=== PATIENT | male | born 1965 | race Caucasian/White ===

== ENCOUNTER 2016-09-19 11:17 | Observation (INO) | payer OTHER ==
[~2016-09-19] VITALS: Ht 172.7 cm; Wt 84.6 kg
[~2016-09-19 11:17] MED LIST: ACARBOSE25 MG PO; ALLEGRA ALLERG180 MG PO; ALLEGRA180 MG PO; ALLERGY-CONGES1 EAC3 PO; AMLODIPINE BESYL5 MG PO; ASMANEX TW200 MICRO1 IH; ASMANEX TW200 MICROG IH; ASPIR 8181 M1 PO; ASPIRIN EC325 MG PO; AZITHROMYCIN250 MG1 PO; AZITHROMYCIN500 M1 PO; Asmanex Twisthaler 1 IH; BETHANECHOL CHL25 MG PO; CELEXA40 MG PO; CITALOPRAM HBR40 MG PO; COMBIGAN O20 DROP/5 LEFT EYE; FLOMAX0.4 MG PO; FLOVENT 11120 INHALA IH; FUROSEMIDE20 MG PO; FUROSEMIDE40 MG PO; Flomax PO; GLIPIZIDE10 MG PO; GLIPIZIDE5 MG PO; GLUCOTROL10 MG PO; HYDROXYZINE HCL25 MG PO; JANUVIA100 MG PO; LASIX20 MG PO; LEVEMIR FL100 UNIT/1 SC; LEVEMIR100 UNIT/2 SC; LIPITOR20 MG PO; LISINOPRIL10 MG PO; LISINOPRIL20 MG PO; LO-DOSE ASPIRIN81 M2 PO; LOPRESSOR100 M1 PO; MELOXICAM15 MG PO; METFORMIN HCL1000 MG PO; METFORMIN HCL500 MG PO; METOPROLOL TART50 MG PO; MOBIC15 MG PO; MONTELUKAST SOD10 MG PO; NITROSTAT0.4 MG SL; NORVASC5 MG PO; PANTOPRAZOLE SO40 MG PO; PRAVACHOL40 MG PO; PRAVASTATIN SOD40 MG PO; PRECOSE25 MG PO; PRECOSE50 MG PO; PROAIR HFA8.5 GM IH; PROTONIX40 MG PO; Protonix PO; SINGULAIR10 MG PO; SPIRIVA RESPIMAT4 GM IH; TAMSULOSIN HCL0.4 MG PO; TRADJENTA5 MG PO; TRAMADOL HCL50 MG PO; ULTRAM50 MG PO; URECHOLINE25 MG PO; Urecholine PO; VENLAFAXINE HCL75 MG PO; VENTOLIN HFA18 GM IH; VERAPAMIL HCL240 M1 PO; VERAPAMIL HCL240 MG PO
[2016-09-19] MEDS ORDERED: LORADAMED10 MG PO (11:47)
[2016-09-19] MEDS ORDERED: SINGULAIR10 MG PO (11:48)
[2016-09-19] MEDS ORDERED: METFORMIN HCL1000 M3 PO (11:51)
[2016-09-19] MEDS ORDERED: GLIPIZIDE5 MG PO (11:51)
[2016-09-19] MEDS ORDERED: RISPERDAL0.5 MG PO (11:52)
[2016-09-19] MEDS ORDERED: BUSPIRONE HCL5 MG PO (11:55)
[2016-09-19] MEDS ORDERED: DULERA 100 MCG/13 GM IH (11:59)
[2016-09-19 12:28] LABS: HEMATOCRIT 33.1 % (38.0-50.0); MCH 27.8 PG (29.0-34.0); MCHC 34.1 G/DL (30.0-36.0); MCV 81.3 FL (86-99); MEAN PLAT.VOLUME 9.7 uM^3 (9.0-12.4); PLATELET COUNT 241 K/uL (156-360); RBC DIS.WIDTH-CV 11.8 % (11.8-14.6); RBC DIS.WIDTH-SD 34.3 % (39-53); RED BLOOD COUNT 4.07 M/uL (4.00-5.50); WHITE BLOOD COUNT 10.4 K/uL (4.1-10.2)
[2016-09-19 12:30] LABS: EOSINOPHIL (%) 11.6 % (0-5); EOSINOPHIL COUNT 1.2 K/uL (0-0.3); IMMATURE GRANULOCYTE (%) 0.5 % (0.0-0.7); IMMATURE GRANULOCYTE COUNT 0.5 K/uL; LYMPHOCYTE COUNT 2.3 K/uL (1.0-2.8); MONOCYTE (%) 6.6 % (3-12); MONOCYTE COUNT 0.7 K/uL (0-0.8); NEUTROPHIL (%) 59.1 % (45-76); NEUTROPHIL COUNT 6.2 K/uL (1.8-6.4)
[2016-09-19 12:36] LABS: CHLORIDE 94 mEq/L (99-109); POTASSIUM 4.6 mEq/L (3.7-5.4); SODIUM 136 mEq/L (136-147)
[2016-09-19 12:38] LABS: GLUCOSE 173 mg/dL (70-99)
[2016-09-19 12:39] LABS: ANION GAP 12 MEQ/L (2-14)
[2016-09-19 12:40] LABS: TOTAL BILIRUBIN 0.4 mg/dL (0.0-1.0)
[2016-09-19 12:42] LABS: ALKALINE PHOSPHATASE 120 IU/L (3-129); GFR ESTIMATE (CALCULATED) > 59 mL/min/
[2016-09-19 12:43] LABS: UREA NITROGEN (BUN) 32 mg/dL (9-23)
[2016-09-19 12:46] LABS: TROP-I INTERPRETATION NEGATIVE; TROPONIN-I < 0.01 ng/mL (0.0-0.30)
[2016-09-19] MEDS ORDERED: OMEPRAZOLE20 MG PO (14:48)
[2016-09-19] MEDS ORDERED: ATROVENT 00.5 MG/2.5 IH (14:55)
[2016-09-19] MEDS ORDERED: LISINOPRIL5 MG PO (14:59)
[2016-09-19] MEDS ORDERED: METFORMIN HCL850 MG PO (15:00)
[2016-09-19] MEDS ORDERED: DAILY VITAMIN1 EAC4 PO (15:01)
[2016-09-19] MEDS ORDERED: ACETAMINOPHEN325 M1 PO (15:05)
[2016-09-19] MEDS ORDERED: MILK OF MAGN PO (15:20)
[2016-09-19] MEDS ORDERED: DULCOLAX10 MG PR (15:21)
[2016-09-19] MEDS ORDERED: ENEMA133 M2 PR (15:22)
[2016-09-19 15:27] VITALS: BP 135/70
[2016-09-19 16:20] VITALS: BP 168/71
[2016-09-19 18:33] LABS: METH RESISTANT S AUREUS PCR POSITIVE (NEGATIVE)
[2016-09-19 18:34] LABS: PROBE CHECK PASS
[2016-09-19 19:57] LABS: TROP-I INTERPRETATION NEGATIVE; TROPONIN-I 0.02 ng/mL (0.0-0.30)
[2016-09-19 20:00] VITALS: BP 116/62
[2016-09-20] VITALS: BP 122/76
[2016-09-20 04:43] VITALS: BP 117/58
[2016-09-20 06:55] LABS: TROP-I INTERPRETATION NEGATIVE; TROPONIN-I 0.02 ng/mL (0.0-0.30)
[2016-09-20 07:52] VITALS: BP 120/69
[2016-09-20 08:09] LABS: POINT-OF-CARE METER ID UU14162513
== END 2016-09-20 10:06 ==
LOC: EME → EDBD 11:17 → EDOF 13:55 → 5WEST 13:55 → EDOF 13:55 → 5WEST 15:18
PROVIDERS: Emergency Medicine; Family Medicine
DX: R07.89 Other chest pain (principal); R94.31 Abnormal electrocardiogram [ECG] [EKG]; R06.02 Shortness of breath; I25.10 Atherosclerotic heart disease of native coronary artery without angina pectoris; I25.5 Ischemic cardiomyopathy; I27.2 Other secondary pulmonary hypertension; I34.0 Nonrheumatic mitral (valve) insufficiency; Z99.81 Dependence on supplemental oxygen; Z95.1 Presence of aortocoronary bypass graft; I10 Essential (primary) hypertension; J44.9 Chronic obstructive pulmonary disease, unspecified; E11.319 Type 2 diabetes mellitus with unspecified diabetic retinopathy without macular edema; E78.5 Hyperlipidemia, unspecified
CPT/HCPCS: 71010; 80053; 82948; 83880; 84484; 85025; 87641; 93005; 94640; 94640 76; 94799; 99202; 99281; 99285; G0378; J1650; J2405

== ENCOUNTER 2016-09-23 21:03 | Inpatient (IN) | payer OTHER ==
[~2016-09-23] VITALS: Ht 172.7 cm; Wt 85.5 kg
[~2016-09-23 21:03] MED LIST changes: +ACETAMINOPHEN325 M1 PO; +ATROVENT 00.5 MG/2.5 IH; +BUSPIRONE HCL5 MG PO; +DAILY VITAMIN1 EAC4 PO; +DULCOLAX10 MG PR; +DULERA 100 MCG/13 GM IH; +ENEMA133 M2 PR; +LISINOPRIL5 MG PO; +LORADAMED10 MG PO; +METFORMIN HCL1000 M3 PO; +METFORMIN HCL850 MG PO; +MILK OF MAGN PO; +OMEPRAZOLE20 MG PO; +RISPERDAL0.5 MG PO
[2016-09-23 21:28] LABS: EOSINOPHIL (%) 6.3 % (0-5); EOSINOPHIL COUNT 0.6 K/uL (0-0.3); HEMATOCRIT 31.2 % (38.0-50.0); IMMATURE GRANULOCYTE (%) 1.1 % (0.0-0.7); IMMATURE GRANULOCYTE COUNT 0.1 K/uL; INSTRUMENT ABS NEUTROPHIL CT 5.9 K/uL; LYMPHOCYTE COUNT 2.2 K/uL (1.0-2.8); MCH 27.8 PG (29.0-34.0); MCHC 34.3 G/DL (30.0-36.0); MEAN PLAT.VOLUME 9.1 uM^3 (9.0-12.4); MONOCYTE (%) 6.5 % (3-12); MONOCYTE COUNT 0.6 K/uL (0-0.8); NEUTROPHIL (%) 62.2 % (45-76); NEUTROPHIL COUNT 5.9 K/uL (1.8-6.4); PLATELET COUNT 191 K/uL (156-360); RBC DIS.WIDTH-CV 11.7 % (11.8-14.6); RBC DIS.WIDTH-SD 33.8 % (39-53); RED BLOOD COUNT 3.85 M/uL (4.00-5.50); WHITE BLOOD COUNT 9.4 K/uL (4.1-10.2)
[2016-09-23 21:39] LABS: CHLORIDE 95 mEq/L (99-109); POTASSIUM 4.4 mEq/L (3.7-5.4); SODIUM 133 mEq/L (136-147)
[2016-09-23 21:41] LABS: GLUCOSE 257 mg/dL (70-99)
[2016-09-23 21:42] LABS: ANION GAP 11 MEQ/L (2-14)
[2016-09-23 21:45] LABS: GFR ESTIMATE (CALCULATED) > 59 mL/min/
[2016-09-23 21:46] LABS: UREA NITROGEN (BUN) 27 mg/dL (9-23)
[2016-09-23 21:50] LABS: TROP-I INTERPRETATION NEGATIVE; TROPONIN-I < 0.01 ng/mL (0.0-0.30)
[2016-09-23 22:56] LABS: ADD MIUA? YES; BILIRUBIN NEGATIVE; BLOOD MODERATE; COLOR STRAW ((YELLOW)); GLUCOSE (STRIP) >=500; KETONES NEGATIVE; LEUKOCYTES LARGE; NITRITE NEGATIVE; PROTEIN (STRIP) NEGATIVE; SPECIFIC GRAVITY 1.002 (1.000-1.030); UROBILINOGEN 0.2 MG/DL (0.2-1.0)
[2016-09-23 22:58] LABS: BACTERIA RARE /HPF; EPITHELIAL CELLS NONE SEEN /HPF; MUCUS NONE SEEN /LPF; RED BLOOD CELLS 0-5 /HPF (0-5); UCUL ADDED? YES; WHITE BLOOD CELLS TNTC /HPF (0-5)
[2016-09-24 03:10] VITALS: BP 150/85
[2016-09-24 04:15] LABS: METH RESISTANT S AUREUS PCR POSITIVE (NEGATIVE)
[2016-09-24 04:16] LABS: PROBE CHECK PASS
[2016-09-24 04:34] VITALS: BP 150/85
[2016-09-24] MEDS ORDERED: TAMSULOSIN HCL0.4 MG PO (05:15)
[2016-09-24] MEDS ORDERED: LOPRESSOR100 M1 PO (05:17)
[2016-09-24] MEDS ORDERED: ALLEGRA ALLERG180 MG PO (05:18)
[2016-09-24] MEDS ORDERED: SINGULAIR10 MG PO (05:18)
[2016-09-24] MEDS ORDERED: ASPIRIN81 M2 PO (05:20)
[2016-09-24] MEDS ORDERED: EFFEXOR75 MG PO (05:21)
[2016-09-24] MEDS ORDERED: COMBIGAN O20 DROP/5 LEFT EYE (05:23)
[2016-09-24] MEDS ORDERED: ATORVASTATIN CA20 MG PO (05:23)
[2016-09-24] MEDS ORDERED: NITROGLYCERIN0.4 MG SL (05:24)
[2016-09-24] MEDS ORDERED: LASIX40 MG PO (05:25)
[2016-09-24] MEDS ORDERED: SPIRIVA RESPIMAT4 GM IH (05:26)
[2016-09-24] MEDS ORDERED: ULTRAM50 MG PO (05:27)
[2016-09-24] MEDS ORDERED: MELOXICAM15 MG PO (05:28)
[2016-09-24] MEDS ORDERED: LORADAMED10 MG PO (05:29)
[2016-09-24] MEDS ORDERED: GLIPIZIDE5 MG PO (05:30)
[2016-09-24] MEDS ORDERED: BUSPAR5 MG PO (05:32)
[2016-09-24] MEDS ORDERED: RISPERDAL0.5 MG PO (05:32)
[2016-09-24] MEDS ORDERED: DULERA 100 MCG/13 GM IH (05:33)
[2016-09-24] MEDS ORDERED: PRILOSEC20 MG PO (05:35)
[2016-09-24] MEDS ORDERED: ATROVENT 00.5 MG/2.5 IH (05:36)
[2016-09-24] MEDS ORDERED: OMEPRAZOLE40 M1 PO (05:36)
[2016-09-24] MEDS ORDERED: METFORMIN HCL850 MG PO (05:37)
[2016-09-24] MEDS ORDERED: ZESTRIL5 MG PO (05:37)
[2016-09-24] MEDS ORDERED: ONCE DAILY1 EACH PO (05:38)
[2016-09-24] MEDS ORDERED: TYLENOL REGULA325 MG PO (05:40)
[2016-09-24 07:58] LABS: POINT-OF-CARE METER ID UU14174216
[2016-09-24 08:42] VITALS: BP 158/82
[2016-09-24 11:41] LABS: POINT-OF-CARE METER ID UU14174216
[2016-09-24 12:08] VITALS: BP 148/64
[2016-09-24 16:42] LABS: POINT-OF-CARE METER ID UU14174216
[2016-09-24 17:18] VITALS: BP 148/70
[2016-09-24 20:45] VITALS: BP 112/80
[2016-09-24 21:33] LABS: POINT-OF-CARE METER ID UU14174216
[2016-09-25 00:42] VITALS: BP 110/58
[2016-09-25 04:21] VITALS: BP 122/64
[2016-09-25 07:55] LABS: POINT-OF-CARE USER ID NUTSLF44
[2016-09-25 09:00] VITALS: BP 132/67
[2016-09-25 12:05] LABS: POINT-OF-CARE USER ID NUTSLF44
[2016-09-25 12:36] VITALS: BP 126/68
[2016-09-25 16:24] VITALS: BP 136/69
[2016-09-25 16:34] LABS: POINT-OF-CARE USER ID NUTSLF44
[2016-09-25 20:10] VITALS: BP 125/66
[2016-09-25 22:37] LABS: POINT-OF-CARE METER ID UU13113698
[2016-09-26 00:19] VITALS: BP 121/78
[2016-09-26 03:59] VITALS: BP 131/78
[2016-09-26 07:08] LABS: HEMATOCRIT 30.2 % (38.0-50.0); MCH 28.1 PG (29.0-34.0); MCHC 33.8 G/DL (30.0-36.0); MCV 83.2 FL (86-99); MEAN PLAT.VOLUME 10.1 uM^3 (9.0-12.4); PLATELET COUNT 214 K/uL (156-360); RBC DIS.WIDTH-SD 36.2 % (39-53); RED BLOOD COUNT 3.63 M/uL (4.00-5.50); WHITE BLOOD COUNT 7.3 K/uL (4.1-10.2)
[2016-09-26 07:20] LABS: POINT-OF-CARE METER ID UU14174216
[2016-09-26 07:27] LABS: ALKALINE PHOSPHATASE 93 IU/L (3-129); ANION GAP 8 MEQ/L (2-14); CHLORIDE 102 MEQ/L (99-109); GFR ESTIMATE (CALCULATED) > 59 mL/min/; GLUCOSE 141 mg/dL (70-99); POTASSIUM 4.3 MEQ/L (3.7-5.4); SAMPLE HEMOLYSIS CHECK 0; SAMPLE ICTERIC CHECK 0; SAMPLE LIPEMIA CHECK 0; SODIUM 138 MEQ/L (136-147); TOTAL BILIRUBIN 0.3 MG/DL (0.0-1.0); UREA NITROGEN (BUN) 15 mg/dL (9-23)
[2016-09-26 08:10] VITALS: BP 137/66
[2016-09-26 11:22] LABS: POINT-OF-CARE METER ID UU14174216
[2016-09-26 11:46] VITALS: BP 117/56
[2016-09-26 15:53] VITALS: BP 152/72
[2016-09-26 16:25] LABS: POINT-OF-CARE METER ID UU13113781
[2016-09-26 20:58] LABS: POINT-OF-CARE METER ID UU14174216
[2016-09-26 23:29] VITALS: BP 126/74
[2016-09-27 04:10] VITALS: BP 125/76
[2016-09-27 07:01] LABS: BASOPHIL COUNT 0.1 K/uL (0-0.1); EOSINOPHIL (%) 9.2 % (0-5); EOSINOPHIL COUNT 0.7 K/uL (0-0.3); HEMATOCRIT 31.6 % (38.0-50.0); IMMATURE GRANULOCYTE (%) 0.9 % (0.0-0.7); IMMATURE GRANULOCYTE COUNT 0.1 K/uL; INSTRUMENT ABS NEUTROPHIL CT 4.7 K/uL; LYMPHOCYTE COUNT 1.6 K/uL (1.0-2.8); MCH 27.6 PG (29.0-34.0); MCHC 33.2 G/DL (30.0-36.0); MCV 82.9 FL (86-99); MEAN PLAT.VOLUME 10.1 uM^3 (9.0-12.4); MONOCYTE (%) 6.4 % (3-12); MONOCYTE COUNT 0.5 K/uL (0-0.8); NEUTROPHIL (%) 61.8 % (45-76); NEUTROPHIL COUNT 4.7 K/uL (1.8-6.4); PLATELET COUNT 228 K/uL (156-360); RED BLOOD COUNT 3.81 M/uL (4.00-5.50); WHITE BLOOD COUNT 7.7 K/uL (4.1-10.2)
[2016-09-27 07:13] LABS: ANION GAP 8 MEQ/L (2-14); CHLORIDE 104 MEQ/L (99-109); GFR ESTIMATE (CALCULATED) > 59 mL/min/; GLUCOSE 157 mg/dL (70-99); POTASSIUM 4.7 MEQ/L (3.7-5.4); SAMPLE HEMOLYSIS CHECK 0; SAMPLE ICTERIC CHECK 0; SAMPLE LIPEMIA CHECK 0; SODIUM 140 MEQ/L (136-147); UREA NITROGEN (BUN) 18 mg/dL (9-23)
[2016-09-27 07:38] LABS: POINT-OF-CARE METER ID UU13113698
[2016-09-27 07:45] VITALS: BP 146/75
[2016-09-27 11:07] VITALS: BP 122/64
[2016-09-27 11:20] LABS: POINT-OF-CARE METER ID UU13113698
[2016-09-27 15:21] VITALS: BP 124/65
[2016-09-27 16:23] LABS: POINT-OF-CARE METER ID UU13113781
[2016-09-27 20:08] VITALS: BP 126/70
[2016-09-27 21:05] LABS: POINT-OF-CARE METER ID UU13113781
[2016-09-28 07:13] LABS: ANION GAP 8 MEQ/L (2-14); CHLORIDE 103 MEQ/L (99-109); GFR ESTIMATE (CALCULATED) > 59 mL/min/; GLUCOSE 148 mg/dL (70-99); POTASSIUM 4.5 MEQ/L (3.7-5.4); SAMPLE HEMOLYSIS CHECK 0; SAMPLE ICTERIC CHECK 0; SAMPLE LIPEMIA CHECK 0; SODIUM 139 MEQ/L (136-147); UREA NITROGEN (BUN) 18 mg/dL (9-23)
[2016-09-28 07:16] LABS: BASOPHIL COUNT 0.1 K/uL (0-0.1); EOSINOPHIL (%) 7.1 % (0-5); EOSINOPHIL COUNT 0.6 K/uL (0-0.3); HEMATOCRIT 32.6 % (38.0-50.0); IMMATURE GRANULOCYTE (%) 1.2 % (0.0-0.7); IMMATURE GRANULOCYTE COUNT 0.1 K/uL; INSTRUMENT ABS NEUTROPHIL CT 5.5 K/uL; LYMPHOCYTE COUNT 1.8 K/uL (1.0-2.8); MCH 26.9 PG (29.0-34.0); MCHC 32.8 G/DL (30.0-36.0); MCV 81.9 FL (86-99); MEAN PLAT.VOLUME 9.7 uM^3 (9.0-12.4); MONOCYTE (%) 5.8 % (3-12); MONOCYTE COUNT 0.5 K/uL (0-0.8); NEUTROPHIL (%) 64.7 % (45-76); NEUTROPHIL COUNT 5.5 K/uL (1.8-6.4); PLATELET COUNT 268 K/uL (156-360); RBC DIS.WIDTH-CV 11.9 % (11.8-14.6); RBC DIS.WIDTH-SD 35.4 % (39-53); RED BLOOD COUNT 3.98 M/uL (4.00-5.50); WHITE BLOOD COUNT 8.6 K/uL (4.1-10.2)
[2016-09-28 08:06] LABS: POINT-OF-CARE METER ID UU14174216; POINT-OF-CARE USER ID ENVKC36
[2016-09-28 08:45] VITALS: BP 128/68
[2016-09-28 11:06] VITALS: BP 122/64
[2016-09-28 12:05] LABS: POINT-OF-CARE METER ID UU14174216; POINT-OF-CARE USER ID ENVKC36
[2016-09-28 13:13] VITALS: BP 130/67
[2016-09-28 16:51] LABS: POINT-OF-CARE METER ID UU13113698
[2016-09-28 19:29] VITALS: BP 120/62
[2016-09-29] VITALS (7 sets, daily range): BP systolic 107–156; BP diastolic 58–81
[2016-09-29 06:55] LABS: BASOPHIL COUNT 0.1 K/uL (0-0.1); EOSINOPHIL COUNT 0.5 K/uL (0-0.3); HEMATOCRIT 32.1 % (38.0-50.0); IMMATURE GRANULOCYTE (%) 1.6 % (0.0-0.7); IMMATURE GRANULOCYTE COUNT 0.1 K/uL; INSTRUMENT ABS NEUTROPHIL CT 4.5 K/uL; MCH 27.6 PG (29.0-34.0); MCHC 33.3 G/DL (30.0-36.0); MCV 82.7 FL (86-99); MEAN PLAT.VOLUME 9.4 uM^3 (9.0-12.4); MONOCYTE (%) 6.4 % (3-12); MONOCYTE COUNT 0.5 K/uL (0-0.8); NEUTROPHIL (%) 58.8 % (45-76); NEUTROPHIL COUNT 4.5 K/uL (1.8-6.4); PLATELET COUNT 245 K/uL (156-360); RBC DIS.WIDTH-CV 12.1 % (11.8-14.6); RED BLOOD COUNT 3.88 M/uL (4.00-5.50); WHITE BLOOD COUNT 7.7 K/uL (4.1-10.2)
[2016-09-29 08:10] LABS: POINT-OF-CARE METER ID UU14174216; POINT-OF-CARE USER ID ENVKC36
[2016-09-29 12:04] LABS: POINT-OF-CARE METER ID UU14174216; POINT-OF-CARE USER ID ENVKC36
[2016-09-29 16:32] LABS: POINT-OF-CARE METER ID UU13113698; POINT-OF-CARE USER ID ENVKC36
[2016-09-29 21:56] LABS: POINT-OF-CARE METER ID UU13113698
[2016-09-30 04:16] VITALS: BP 152/73
[2016-09-30 06:47] LABS: BASOPHIL COUNT 0.1 K/uL (0-0.1); EOSINOPHIL (%) 7.3 % (0-5); EOSINOPHIL COUNT 0.6 K/uL (0-0.3); HEMATOCRIT 31.6 % (38.0-50.0); IMMATURE GRANULOCYTE COUNT 0.2 K/uL; INSTRUMENT ABS NEUTROPHIL CT 4.7 K/uL; LYMPHOCYTE COUNT 2.1 K/uL (1.0-2.8); MCH 27.3 PG (29.0-34.0); MCHC 33.2 G/DL (30.0-36.0); MCV 82.1 FL (86-99); MEAN PLAT.VOLUME 9.4 uM^3 (9.0-12.4); MONOCYTE COUNT 0.5 K/uL (0-0.8); NEUTROPHIL (%) 58.2 % (45-76); NEUTROPHIL COUNT 4.7 K/uL (1.8-6.4); PLATELET COUNT 244 K/uL (156-360); RBC DIS.WIDTH-CV 12.1 % (11.8-14.6); RBC DIS.WIDTH-SD 35.8 % (39-53); RED BLOOD COUNT 3.85 M/uL (4.00-5.50)
[2016-09-30 07:19] LABS: ANION GAP 6 MEQ/L (2-14); CHLORIDE 104 MEQ/L (99-109); GFR ESTIMATE (CALCULATED) > 59 mL/min/; GLUCOSE 140 mg/dL (70-99); POTASSIUM 4.5 MEQ/L (3.7-5.4); SAMPLE HEMOLYSIS CHECK 0; SAMPLE ICTERIC CHECK 0; SAMPLE LIPEMIA CHECK 0; SODIUM 139 MEQ/L (136-147); UREA NITROGEN (BUN) 18 mg/dL (9-23)
[2016-09-30 09:22] VITALS: BP 144/70
[2016-09-30] MEDS ORDERED: GLIPIZIDE5 MG PO (11:51)
[2016-09-30] MEDS ORDERED: VERAPAMIL HCL120 MG PO (11:51)
[2016-09-30 11:53] VITALS: BP 117/70
[2016-09-30] MEDS ORDERED: MACROBID100 MG PO (11:53)
[2016-09-30 12:12] LABS: POINT-OF-CARE METER ID UU13113781
== END 2016-09-30 14:22 | disposition home health service (06) | DRG 698 ==
LOC: EME → EDBD 21:03 → EME 21:03 → EDOF 09-24 00:27 → 4EAST 09-24 00:27
PROVIDERS: Emergency Medicine; Family Medicine; Internal Medicine
DX: T83.511A Infection and inflammatory reaction due to indwelling urethral catheter, initial encounter (principal); A41.9 Sepsis, unspecified organism; F05 Delirium due to known physiological condition; N39.0 Urinary tract infection, site not specified; N31.9 Neuromuscular dysfunction of bladder, unspecified; H54.8 Legal blindness, as defined in USA; I67.2 Cerebral atherosclerosis; F43.23 Adjustment disorder with mixed anxiety and depressed mood; E11.9 Type 2 diabetes mellitus without complications; B96.4 Proteus (mirabilis) (morganii) as the cause of diseases classified elsewhere; E78.5 Hyperlipidemia, unspecified; J44.9 Chronic obstructive pulmonary disease, unspecified; I25.10 Atherosclerotic heart disease of native coronary artery without angina pectoris; I10 Essential (primary) hypertension; R00.0 Tachycardia, unspecified; I25.5 Ischemic cardiomyopathy; R32 Unspecified urinary incontinence; E66.9 Obesity, unspecified; I95.9 Hypotension, unspecified; Z95.5 Presence of coronary angioplasty implant and graft
CPT/HCPCS: 70450; 71010; 71020; 80048; 80053; 81003; 82948; 83605; 84484; 85025; 85027; 87040; 87077; 87081; 87086; 87186; 87641; 93005; 94640; 94799; 99202; 99281; 99285; J0692; J0696; J1650; J1815; J2405; J2543; J7030; J7050

== ENCOUNTER 2016-10-05 12:29 | Observation (INO) | payer OTHER ==
[~2016-10-05] VITALS: Ht 172.7 cm; Wt 81.9 kg
[2016-10-05 08:50] VITALS: BP 140/80
[~2016-10-05 12:29] MED LIST changes: +ASPIRIN81 M2 PO; +ATORVASTATIN CA20 MG PO; +BUSPAR5 MG PO; +EFFEXOR75 MG PO; +LASIX40 MG PO; +MACROBID100 MG PO; +NITROGLYCERIN0.4 MG SL; +OMEPRAZOLE40 M1 PO; +ONCE DAILY1 EACH PO; +PRILOSEC20 MG PO; +TYLENOL REGULA325 MG PO; +VERAPAMIL HCL120 MG PO; +ZESTRIL5 MG PO
[2016-10-05 13:11] LABS: HEMATOCRIT 35.5 % (38.0-50.0); MCH 27.6 PG (29.0-34.0); MCHC 33.2 G/DL (30.0-36.0); MCV 82.9 FL (86-99); MEAN PLAT.VOLUME 9.3 uM^3 (9.0-12.4); PLATELET COUNT 266 K/uL (156-360); RBC DIS.WIDTH-CV 12.5 % (11.8-14.6); RBC DIS.WIDTH-SD 37.2 % (39-53); RED BLOOD COUNT 4.28 M/uL (4.00-5.50); WHITE BLOOD COUNT 7.7 K/uL (4.1-10.2)
[2016-10-05 13:22] LABS: CHLORIDE 100 mEq/L (99-109); POTASSIUM 4.5 mEq/L (3.7-5.4); SODIUM 136 mEq/L (136-147)
[2016-10-05 13:24] LABS: GLUCOSE 114 mg/dL (70-99)
[2016-10-05 13:25] LABS: ANION GAP 14 MEQ/L (2-14)
[2016-10-05 13:27] LABS: GFR ESTIMATE (CALCULATED) > 59 mL/min/
[2016-10-05 13:28] LABS: UREA NITROGEN (BUN) 23 mg/dL (9-23)
[2016-10-05 13:31] LABS: TROP-I INTERPRETATION NEGATIVE; TROPONIN-I < 0.01 ng/mL (0.0-0.30)
[2016-10-05 14:43] LABS: D-DIMER ELISA 0.59 mg/L FEU (< 0.57)
[2016-10-05 17:00] VITALS: BP 172/83
[2016-10-05 20:13] LABS: METH RESISTANT S AUREUS PCR POSITIVE (NEGATIVE)
[2016-10-05 20:17] LABS: PROBE CHECK PASS
[2016-10-05 20:50] VITALS: BP 140/85
[2016-10-05 21:29] LABS: POINT-OF-CARE METER ID UU13113831
[2016-10-06 00:49] VITALS: BP 112/61
[2016-10-06 01:19] LABS: TROP-I INTERPRETATION NEGATIVE; TROPONIN-I 0.01 ng/mL (0.0-0.30)
[2016-10-06 03:38] VITALS: BP 107/59
[2016-10-06 06:57] LABS: HEMATOCRIT 30.8 % (38.0-50.0); MCHC 33.4 G/DL (30.0-36.0); MCV 83.7 FL (86-99); MEAN PLAT.VOLUME 10.1 uM^3 (9.0-12.4); PLATELET COUNT 249 K/uL (156-360); RBC DIS.WIDTH-CV 12.9 % (11.8-14.6); RED BLOOD COUNT 3.68 M/uL (4.00-5.50); WHITE BLOOD COUNT 6.5 K/uL (4.1-10.2)
[2016-10-06 07:28] LABS: ANION GAP 9 MEQ/L (2-14); CHLORIDE 102 MEQ/L (99-109); GFR ESTIMATE (CALCULATED) > 59 mL/min/; POTASSIUM 4.1 MEQ/L (3.7-5.4); SAMPLE HEMOLYSIS CHECK 0; SAMPLE ICTERIC CHECK 0; SAMPLE LIPEMIA CHECK 0; SODIUM 139 MEQ/L (136-147); UREA NITROGEN (BUN) 20 mg/dL (9-23)
[2016-10-06 07:29] LABS: TROP-I INTERPRETATION NEGATIVE; TROPONIN-I 0.02 ng/mL (0.0-0.30)
[2016-10-06 07:33] VITALS: BP 134/60
[2016-10-06 07:35] LABS: GLUCOSE 72 mg/dL (70-99)
[2016-10-06 08:12] LABS: POINT-OF-CARE METER ID UU14162513
[2016-10-06 10:51] VITALS: BP 102/68
[2016-10-06 11:54] LABS: POINT-OF-CARE METER ID UU13113700
== END 2016-10-06 14:48 | disposition home or self-care (01) ==
LOC: EME 12:29 → EDBD 12:29 → EDOF 15:45 → 5WEST 15:45
PROVIDERS: Emergency Medicine; Hospitalist; Internal Medicine
DX: R07.2 Precordial pain (principal); R00.0 Tachycardia, unspecified; R33.9 Retention of urine, unspecified; J44.9 Chronic obstructive pulmonary disease, unspecified; E11.319 Type 2 diabetes mellitus with unspecified diabetic retinopathy without macular edema; I25.10 Atherosclerotic heart disease of native coronary artery without angina pectoris; I10 Essential (primary) hypertension; H54.7 Unspecified visual loss; Z95.1 Presence of aortocoronary bypass graft; I25.5 Ischemic cardiomyopathy; E78.5 Hyperlipidemia, unspecified
CPT/HCPCS: 71020; 71275; 80048; 82948; 84484; 85027; 85379; 87641; 93005; 94640; 94640 76; 94799; 99281; 99285; G0378; J1650; J1815; J7030

== ENCOUNTER 2016-10-12 21:06 | Observation (INO) | payer OTHER ==
[~2016-10-12] VITALS: Ht 172.7 cm; Wt 85.0 kg
[2016-10-12 21:57] LABS: EOSINOPHIL (%) 11.7 % (0-5); EOSINOPHIL COUNT 0.9 K/uL (0-0.3); HEMATOCRIT 31.8 % (38.0-50.0); IMMATURE GRANULOCYTE (%) 0.5 % (0.0-0.7); INSTRUMENT ABS NEUTROPHIL CT 3.9 K/uL; LYMPHOCYTE COUNT 2.2 K/uL (1.0-2.8); MCH 28.2 PG (29.0-34.0); MCHC 33.3 G/DL (30.0-36.0); MCV 84.6 FL (86-99); MEAN PLAT.VOLUME 9.9 uM^3 (9.0-12.4); MONOCYTE (%) 6.6 % (3-12); MONOCYTE COUNT 0.5 K/uL (0-0.8); NEUTROPHIL (%) 51.6 % (45-76); NEUTROPHIL COUNT 3.9 K/uL (1.8-6.4); PLATELET COUNT 206 K/uL (156-360); RBC DIS.WIDTH-CV 12.6 % (11.8-14.6); RBC DIS.WIDTH-SD 38.2 % (39-53); RED BLOOD COUNT 3.76 M/uL (4.00-5.50); WHITE BLOOD COUNT 7.6 K/uL (4.1-10.2)
[2016-10-12 22:09] LABS: CHLORIDE 103 mEq/L (99-109); POTASSIUM 4.4 mEq/L (3.7-5.4); SODIUM 140 mEq/L (136-147)
[2016-10-12 22:11] LABS: GLUCOSE 97 mg/dL (70-99)
[2016-10-12 22:12] LABS: ANION GAP 9 MEQ/L (2-14)
[2016-10-12 22:13] LABS: TOTAL BILIRUBIN 0.2 mg/dL (0.0-1.0)
[2016-10-12 22:14] LABS: ALKALINE PHOSPHATASE 81 IU/L (3-129)
[2016-10-12 22:15] LABS: GFR ESTIMATE (CALCULATED) > 59 mL/min/
[2016-10-12 22:16] LABS: DIRECT BILIRUBIN 0.1 mg/dL (0.0-0.3); UREA NITROGEN (BUN) 22 mg/dL (9-23)
[2016-10-12 22:18] LABS: LIPASE 64 U/L (1.0-51.0)
[2016-10-12 22:19] LABS: TROP-I INTERPRETATION NEGATIVE; TROPONIN-I 0.02 ng/mL (0.0-0.30)
[2016-10-12] MEDS ORDERED: ALLEGRA ALLERG180 MG PO (23:42)
[2016-10-12] MEDS ORDERED: PRILOSEC20 MG PO (23:44)
[2016-10-12] MEDS ORDERED: CLARITIN,ALAVAR10 MG PO (23:45)
[2016-10-13 01:53] VITALS: BP 180/84
[2016-10-13 03:12] VITALS: BP 152/90
[2016-10-13 03:35] LABS: METH RESISTANT S AUREUS PCR POSITIVE (NEGATIVE)
[2016-10-13 03:48] LABS: PROBE CHECK PASS
[2016-10-13 04:59] LABS: TROP-I INTERPRETATION NEGATIVE; TROPONIN-I 0.02 ng/mL (0.0-0.30)
[2016-10-13 07:49] VITALS: BP 140/80
[2016-10-13 09:37] LABS: TROP-I INTERPRETATION NEGATIVE; TROPONIN-I < 0.01 ng/mL (0.0-0.30)
[2016-10-13 12:00] VITALS: BP 141/79
== END 2016-10-13 14:26 | disposition home or self-care (01) ==
LOC: EME 21:06 → EDOF 23:30 → 5WEST 23:30 → EDOF 23:30 → 5WEST 10-13 01:28
PROVIDERS: Emergency Medicine; Family Medicine
DX: R07.89 Other chest pain (principal); I95.2 Hypotension due to drugs; T46.3X5A Adverse effect of coronary vasodilators, initial encounter; E11.319 Type 2 diabetes mellitus with unspecified diabetic retinopathy without macular edema; I10 Essential (primary) hypertension; I25.10 Atherosclerotic heart disease of native coronary artery without angina pectoris; I25.5 Ischemic cardiomyopathy; Z95.1 Presence of aortocoronary bypass graft; R33.9 Retention of urine, unspecified
CPT/HCPCS: 71010; 80048; 80076; 83690; 84484; 85025; 87641; 93005; 94640; 94799; 99281; 99285; G0378

== ENCOUNTER 2016-10-26 19:52 | Observation (INO) | payer OTHER ==
[~2016-10-26] VITALS: Ht 172.7 cm; Wt 85.7 kg
[~2016-10-26 19:52] MED LIST changes: +CLARITIN,ALAVAR10 MG PO
[2016-10-26 20:35] LABS: HEMATOCRIT 35.4 % (38.0-50.0); MCH 27.5 PG (29.0-34.0); MCHC 33.9 G/DL (30.0-36.0); MCV 81.2 FL (86-99); MEAN PLAT.VOLUME 10.4 uM^3 (9.0-12.4); PLATELET COUNT 225 K/uL (156-360); RBC DIS.WIDTH-CV 12.5 % (11.8-14.6); RBC DIS.WIDTH-SD 36.7 % (39-53); RED BLOOD COUNT 4.36 M/uL (4.00-5.50); WHITE BLOOD COUNT 8.6 K/uL (4.1-10.2)
[2016-10-26 20:44] LABS: CHLORIDE 100 mEq/L (99-109); SODIUM 135 mEq/L (136-147)
[2016-10-26 20:46] LABS: GLUCOSE 211 mg/dL (70-99)
[2016-10-26 20:48] LABS: ANION GAP 14 MEQ/L (2-14)
[2016-10-26 20:50] LABS: GFR ESTIMATE (CALCULATED) > 59 mL/min/
[2016-10-26 20:51] LABS: UREA NITROGEN (BUN) 19 mg/dL (9-23)
[2016-10-26 20:56] LABS: TROP-I INTERPRETATION NEGATIVE; TROPONIN-I 0.03 ng/mL (0.0-0.30)
[2016-10-27 01:30] VITALS: BP 151/85
[2016-10-27 02:58] LABS: TROP-I INTERPRETATION NEGATIVE; TROPONIN-I 0.08 ng/mL (0.0-0.30)
[2016-10-27 03:56] VITALS: BP 157/81
[2016-10-27 08:16] LABS: METH RESISTANT S AUREUS PCR POSITIVE (NEGATIVE)
[2016-10-27 08:44] LABS: PROBE CHECK PASS
[2016-10-27 08:53] LABS: POINT-OF-CARE METER ID UU14162513
[2016-10-27 09:50] LABS: TROP-I INTERPRETATION NEGATIVE; TROPONIN-I 0.03 ng/mL (0.0-0.30)
[2016-10-27 10:33] VITALS: BP 125/71
[2016-10-27] MEDS ORDERED: IMDUR30 MG PO (15:34)
== END 2016-10-27 16:13 | disposition home or self-care (01) ==
LOC: EME → EDBD 19:52 → EDOF 23:51 → 5WEST 23:51
PROVIDERS: Emergency Medicine; Family Medicine
DX: R07.2 Precordial pain (principal); I25.10 Atherosclerotic heart disease of native coronary artery without angina pectoris; I25.5 Ischemic cardiomyopathy; E11.319 Type 2 diabetes mellitus with unspecified diabetic retinopathy without macular edema; I10 Essential (primary) hypertension; I25.2 Old myocardial infarction
CPT/HCPCS: 71010; 71275; 78582; 80048; 82948; 84484; 85027; 87641; 93005; 94640 76; 99281; 99284; A9540; A9567; G0378; J1650; J7030

== ENCOUNTER 2016-10-31 17:41 | Emergency (ER) | payer OTHER ==
[~2016-10-31] VITALS: Ht 172.7 cm; Wt 85.7 kg
[~2016-10-31 17:41] MED LIST changes: +IMDUR30 MG PO
[2016-10-31 18:57] LABS: EOSINOPHIL (%) 6.9 % (0-5); EOSINOPHIL COUNT 0.6 K/uL (0-0.3); HEMATOCRIT 33.6 % (38.0-50.0); IMMATURE GRANULOCYTE COUNT 0.1 K/uL; INSTRUMENT ABS NEUTROPHIL CT 5.4 K/uL; LYMPHOCYTE COUNT 2.6 K/uL (1.0-2.8); MCH 28.2 PG (29.0-34.0); MCHC 34.5 G/DL (30.0-36.0); MCV 81.6 FL (86-99); MEAN PLAT.VOLUME 10.1 uM^3 (9.0-12.4); MONOCYTE (%) 6.5 % (3-12); MONOCYTE COUNT 0.6 K/uL (0-0.8); NEUTROPHIL (%) 57.8 % (45-76); NEUTROPHIL COUNT 5.4 K/uL (1.8-6.4); PLATELET COUNT 245 K/uL (156-360); RBC DIS.WIDTH-CV 12.7 % (11.8-14.6); RBC DIS.WIDTH-SD 37.3 % (39-53); RED BLOOD COUNT 4.12 M/uL (4.00-5.50); WHITE BLOOD COUNT 9.3 K/uL (4.1-10.2)
[2016-10-31 19:05] LABS: CHLORIDE 100 mEq/L (99-109); POTASSIUM 4.6 mEq/L (3.7-5.4); SODIUM 134 mEq/L (136-147)
[2016-10-31 19:07] LABS: GLUCOSE 164 mg/dL (70-99)
[2016-10-31 19:08] LABS: ANION GAP 11 MEQ/L (2-14)
[2016-10-31 19:09] LABS: D-DIMER ELISA 0.42 mg/L FEU (< 0.57); TOTAL BILIRUBIN 0.3 mg/dL (0.0-1.0)
[2016-10-31 19:10] LABS: ALKALINE PHOSPHATASE 71 IU/L (3-129)
[2016-10-31 19:11] LABS: GFR ESTIMATE (CALCULATED) > 59 mL/min/
[2016-10-31 19:12] LABS: UREA NITROGEN (BUN) 25 mg/dL (9-23)
[2016-10-31 19:16] LABS: TROP-I INTERPRETATION NEGATIVE; TROPONIN-I < 0.01 ng/mL (0.0-0.30)
[2016-10-31 20:43] VITALS: BP 121/67
== END 2016-10-31 20:44 | disposition home or self-care (01) ==
LOC: EME → EDBD 17:41 → EME 20:44
PROVIDERS: Emergency Medicine
DX: R07.9 Chest pain, unspecified (principal); R10.13 Epigastric pain; R06.00 Dyspnea, unspecified; I25.2 Old myocardial infarction; I10 Essential (primary) hypertension; E11.9 Type 2 diabetes mellitus without complications; J45.909 Unspecified asthma, uncomplicated; Z79.82 Long term (current) use of aspirin; Z79.891 Long term (current) use of opiate analgesic
CPT/HCPCS: 71010; 80053; 83880; 84484; 85025; 85379; 93005; 99281; 99285; J2270; J2405

== ENCOUNTER 2016-11-03 15:18 | Inpatient (IN) | payer OTHER ==
[~2016-11-03] VITALS: Ht 172.7 cm; Wt 82.0 kg
[2016-11-03 22:09] VITALS: BP 123/70
[2016-11-04 08:03] VITALS: BP 154/76
[2016-11-04 15:58] VITALS: BP 104/57
[2016-11-05 07:35] VITALS: BP 130/69
[2016-11-05 15:22] VITALS: BP 127/59
[2016-11-06 08:02] VITALS: BP 135/65
[2016-11-06 15:40] VITALS: BP 104/58
[2016-11-07 06:32] LABS: POINT-OF-CARE METER ID UU13113830
[2016-11-07 07:46] VITALS: BP 110/59
[2016-11-07 15:25] VITALS: BP 97/56
[2016-11-07 17:31] LABS: POINT-OF-CARE METER ID UU13113830; POINT-OF-CARE USER ID BHSMRC
[2016-11-07 18:26] LABS: POINT-OF-CARE METER ID UU13113830; POINT-OF-CARE USER ID BHSMEW
[2016-11-08 06:12] LABS: POINT-OF-CARE METER ID UU13113830; POINT-OF-CARE USER ID BHSSMG
[2016-11-08 07:35] VITALS: BP 116/60
[2016-11-08] MEDS ORDERED: MIRTAZAPINE15 MG PO (09:15)
[2016-11-09] MEDS ORDERED: ZITHROMAX Z-PA250 MG PO (13:16)
[2016-11-09] MEDS ORDERED: PREDNISONE50 MG PO (13:16)
== END 2016-11-08 11:07 | disposition home or self-care (01) | DRG 885 ==
LOC: EME 15:18 → EDOF 17:48 → 1WEST 17:48
PROVIDERS: Psychiatry & Neurology Psychiatry
DX: F32.1 Major depressive disorder, single episode, moderate (principal); J44.9 Chronic obstructive pulmonary disease, unspecified; E11.319 Type 2 diabetes mellitus with unspecified diabetic retinopathy without macular edema; R33.9 Retention of urine, unspecified; I25.10 Atherosclerotic heart disease of native coronary artery without angina pectoris; I10 Essential (primary) hypertension; Z95.1 Presence of aortocoronary bypass graft; J45.909 Unspecified asthma, uncomplicated; I25.2 Old myocardial infarction; R45.851 Suicidal ideations; H54.8 Legal blindness, as defined in USA
CPT/HCPCS: 71010; 80053; 82948; 83880; 84484; 85025; 85379; 90839; 93005; 94640; 94640 76; 94664; 99281; 99285; J1650; J2270; J2405

== ENCOUNTER 2016-11-09 07:52 | Emergency (ER) | payer OTHER ==
[~2016-11-09] VITALS: Ht 172.7 cm; Wt 84.9 kg
[~2016-11-09 07:52] MED LIST changes: +MIRTAZAPINE15 MG PO
[2016-11-09 08:30] LABS: HEMATOCRIT 34.4 % (38.0-50.0); MCHC 34.3 G/DL (30.0-36.0); MCV 81.7 FL (86-99); MEAN PLAT.VOLUME 9.8 uM^3 (9.0-12.4); PLATELET COUNT 242 K/uL (156-360); RBC DIS.WIDTH-CV 12.6 % (11.8-14.6); RBC DIS.WIDTH-SD 37.4 % (39-53); RED BLOOD COUNT 4.21 M/uL (4.00-5.50)
[2016-11-09 08:33] LABS: WHITE BLOOD COUNT 13.6 K/uL (4.1-10.2)
[2016-11-09 08:41] LABS: CHLORIDE 100 mEq/L (99-109); POTASSIUM 4.4 mEq/L (3.7-5.4); SODIUM 133 mEq/L (136-147)
[2016-11-09 08:42] LABS: GLUCOSE 112 mg/dL (70-99)
[2016-11-09 08:44] LABS: ANION GAP 11 MEQ/L (2-14)
[2016-11-09 08:46] LABS: GFR ESTIMATE (CALCULATED) > 59 mL/min/
[2016-11-09 08:47] LABS: UREA NITROGEN (BUN) 26 mg/dL (9-23)
[2016-11-09 08:51] LABS: TROP-I INTERPRETATION NEGATIVE; TROPONIN-I 0.01 ng/mL (0.0-0.30)
[2016-11-09 12:41] LABS: TROP-I INTERPRETATION NEGATIVE; TROPONIN-I 0.02 ng/mL (0.0-0.30)
[2016-11-09] MEDS ORDERED: PREDNISONE50 MG PO (13:16)
[2016-11-09] MEDS ORDERED: ZITHROMAX Z-PA250 MG PO (13:16)
[2016-11-09 13:55] VITALS: BP 137/83
== END 2016-11-09 13:57 | disposition home or self-care (01) ==
LOC: EME 07:52
PROVIDERS: Emergency Medicine
DX: J18.9 Pneumonia, unspecified organism (principal); J21.9 Acute bronchiolitis, unspecified; J44.1 Chronic obstructive pulmonary disease with (acute) exacerbation; I25.2 Old myocardial infarction; E11.9 Type 2 diabetes mellitus without complications; I10 Essential (primary) hypertension
CPT/HCPCS: 71010; 71275; 80048; 84484; 85027; 93005; 99281; 99285

== ENCOUNTER 2016-11-11 12:31 | Emergency (ER) | payer OTHER ==
[~2016-11-11] VITALS: Ht 170.2 cm; Wt 83.1 kg
[~2016-11-11 12:31] MED LIST changes: +PREDNISONE50 MG PO; +ZITHROMAX Z-PA250 MG PO
[2016-11-11 13:39] LABS: EOSINOPHIL (%) 0.3 % (0-5); HEMATOCRIT 34.4 % (38.0-50.0); IMMATURE GRANULOCYTE (%) 1.7 % (0.0-0.7); IMMATURE GRANULOCYTE COUNT 0.2 K/uL; INSTRUMENT ABS NEUTROPHIL CT 9.2 K/uL; LYMPHOCYTE COUNT 1.8 K/uL (1.0-2.8); MCH 27.9 PG (29.0-34.0); MCV 82.1 FL (86-99); MEAN PLAT.VOLUME 9.5 uM^3 (9.0-12.4); MONOCYTE (%) 7.1 % (3-12); MONOCYTE COUNT 0.9 K/uL (0-0.8); NEUTROPHIL (%) 75.6 % (45-76); NEUTROPHIL COUNT 9.2 K/uL (1.8-6.4); PLATELET COUNT 297 K/uL (156-360); RBC DIS.WIDTH-CV 12.5 % (11.8-14.6); RBC DIS.WIDTH-SD 37.2 % (39-53); RED BLOOD COUNT 4.19 M/uL (4.00-5.50); WHITE BLOOD COUNT 12.2 K/uL (4.1-10.2)
[2016-11-11 13:47] LABS: CHLORIDE 102 mEq/L (99-109); SODIUM 136 mEq/L (136-147)
[2016-11-11 13:48] LABS: GLUCOSE 124 mg/dL (70-99); POTASSIUM 3.5 mEq/L (3.7-5.4)
[2016-11-11 13:50] LABS: ANION GAP 14 MEQ/L (2-14)
[2016-11-11 13:52] LABS: GFR ESTIMATE (CALCULATED) > 59 mL/min/; INTER. NORMALIZED RATIO 1.1; PROTHROMBIN TIME 11.4 (9.2-11.2)
[2016-11-11 13:53] LABS: UREA NITROGEN (BUN) 30 mg/dL (9-23)
[2016-11-11 13:55] LABS: CREATINE KINASE 50 IU/L (1-294); TOTAL CK 50 IU/L (1-294)
[2016-11-11 14:00] LABS: TROP-I INTERPRETATION NEGATIVE; TROPONIN-I 0.01 ng/mL (0.0-0.30)
[2016-11-11 14:08] LABS: CK-MB 1.5 ng/mL (0.0-4.9)
[2016-11-11 15:30] VITALS: BP 112/73
== END 2016-11-11 15:37 | disposition home or self-care (01) ==
LOC: EME 12:31
PROVIDERS: Emergency Medicine
DX: R07.89 Other chest pain (principal); F41.9 Anxiety disorder, unspecified; I10 Essential (primary) hypertension; E11.9 Type 2 diabetes mellitus without complications; J45.909 Unspecified asthma, uncomplicated; I25.2 Old myocardial infarction; Z79.82 Long term (current) use of aspirin; I25.10 Atherosclerotic heart disease of native coronary artery without angina pectoris; F32.9 Major depressive disorder, single episode, unspecified
CPT/HCPCS: 71010; 80048; 82550; 82553; 83880; 84484; 85025; 85610; 85730; 93005; 99281; 99284

== ENCOUNTER 2017-02-14 04:05 | Observation (INO) | payer OTHER ==
[~2017-02-14] VITALS: Ht 172.7 cm; Wt 81.1 kg
[2017-02-14 05:32] LABS: HEMATOCRIT 34.4 % (38.0-50.0); MCH 27.8 PG (29.0-34.0); MCHC 34.9 G/DL (30.0-36.0); MCV 79.6 FL (86-99); MEAN PLAT.VOLUME 9.8 uM^3 (9.0-12.4); PLATELET COUNT 220 K/uL (156-360); RBC DIS.WIDTH-CV 12.5 % (11.8-14.6); RBC DIS.WIDTH-SD 36.2 % (39-53); RED BLOOD COUNT 4.32 M/uL (4.00-5.50); WHITE BLOOD COUNT 6.5 K/uL (4.1-10.2)
[2017-02-14 05:41] LABS: CHLORIDE 100 mEq/L (99-109); POTASSIUM 4.2 mEq/L (3.7-5.4); SODIUM 135 mEq/L (136-147)
[2017-02-14 05:43] LABS: GLUCOSE 130 mg/dL (70-99)
[2017-02-14 05:44] LABS: ANION GAP 12 MEQ/L (2-14)
[2017-02-14 05:47] LABS: GFR ESTIMATE (CALCULATED) 52 mL/min/
[2017-02-14 05:48] LABS: UREA NITROGEN (BUN) 31 mg/dL (9-23)
[2017-02-14 05:54] LABS: TROP-I INTERPRETATION NEGATIVE; TROPONIN-I < 0.01 ng/mL (0.0-0.30)
[2017-02-14 07:35] VITALS: BP 155/78
[2017-02-14 11:24] LABS: TROP-I INTERPRETATION NEGATIVE; TROPONIN-I < 0.01 ng/mL (0.0-0.30)
[2017-02-14 11:29] VITALS: BP 115/77
[2017-02-14 13:15] VITALS: BP 168/89
[2017-02-14 15:35] VITALS: BP 121/65
[2017-02-14 17:12] LABS: TROP-I INTERPRETATION NEGATIVE; TROPONIN-I 0.01 ng/mL (0.0-0.30)
== END 2017-02-14 19:27 | disposition home or self-care (01) ==
LOC: EME → EDBD 04:05 → EME 04:05 → EDOF 05:20 → 5WEST 05:20 → ENRESERV 05:58 → 5WEST 07:16
PROVIDERS: Emergency Medicine; Family Medicine
DX: R07.89 Other chest pain (principal); F41.9 Anxiety disorder, unspecified; I25.10 Atherosclerotic heart disease of native coronary artery without angina pectoris; Z95.1 Presence of aortocoronary bypass graft; I10 Essential (primary) hypertension; I25.5 Ischemic cardiomyopathy; I47.1 Supraventricular tachycardia; E11.319 Type 2 diabetes mellitus with unspecified diabetic retinopathy without macular edema; H54.0 Blindness, both eyes; Z82.49 Family history of ischemic heart disease and other diseases of the circulatory system
CPT/HCPCS: 71020; 80048; 83880; 84484; 85027; 93005; 94640; 99281; 99284; G0378; J2405

== ENCOUNTER 2017-02-26 14:27 | Inpatient (IN) | payer OTHER ==
[~2017-02-26] VITALS: Ht 172.7 cm; Wt 77.0 kg
[2017-02-26 17:25] LABS: HEMATOCRIT 33.5 % (38.0-50.0); MCH 27.8 PG (29.0-34.0); MCHC 33.7 G/DL (30.0-36.0); MCV 82.5 FL (86-99); PLATELET COUNT 187 K/uL (156-360); RBC DIS.WIDTH-CV 13.2 % (11.8-14.6); RBC DIS.WIDTH-SD 39.7 % (39-53); RED BLOOD COUNT 4.06 M/uL (4.00-5.50); WHITE BLOOD COUNT 7.2 K/uL (4.1-10.2)
[2017-02-26 17:42] LABS: CHLORIDE 104 mEq/L (99-109); POTASSIUM 4.5 mEq/L (3.7-5.4); SODIUM 138 mEq/L (136-147)
[2017-02-26 17:44] LABS: GLUCOSE 59 mg/dL (70-99)
[2017-02-26 17:46] LABS: ANION GAP 8 MEQ/L (2-14)
[2017-02-26 17:47] LABS: SERUM ETHYL ALCOHOL < 10 mg/dL
[2017-02-26 17:48] LABS: GFR ESTIMATE (CALCULATED) > 59 mL/min/
[2017-02-26 17:50] LABS: UREA NITROGEN (BUN) 18 mg/dL (9-23)
[2017-02-26 17:51] LABS: SALICYLATE < 5.0 MG/DL (15-30)
[2017-02-26 18:33] LABS: AMPHETAMINE NEGATIVE (500 ng/mL); BARBITURATES NEGATIVE (200 ng/mL); BENZODIAZEPINES NEGATIVE (150 ng/mL); COCAINE NEGATIVE (150 ng/mL); INTERNAL CONTROLS VALID? YES; METHADONE NEGATIVE (200 ng/mL); METHAMPHETAMINE NEGATIVE (500 ng/mL); OPIATES (MORPHINE) NEGATIVE (100 ng/mL); OXYCODONE NEGATIVE (100 ng/mL); PHENCYCLIDINE NEGATIVE (25 ng/mL); PROPOXYPHENE NEGATIVE (300 ng/mL); THC CANNABINOIDS NEGATIVE (50 ng/mL); TRICYCLIC ANTIDEPRESSANTS NEGATIVE (300 ng/mL)
[2017-02-26 19:27] VITALS: BP 171/95
[2017-02-26] MEDS ORDERED: LOPRESSOR25 MG PO (20:41)
[2017-02-26] MEDS ORDERED: FLOMAX0.4 MG PO (20:44)
[2017-02-26] MEDS ORDERED: SINGULAIR10 MG PO (20:45)
[2017-02-26] MEDS ORDERED: LO-DOSE ASPIRIN81 M1 PO (20:46)
[2017-02-26] MEDS ORDERED: EFFEXOR75 MG PO (20:47)
[2017-02-26] MEDS ORDERED: LIPITOR20 MG PO (20:48)
[2017-02-26] MEDS ORDERED: NITROSTAT0.4 MG SL (20:53)
[2017-02-26] MEDS ORDERED: LASIX40 MG PO (20:54)
[2017-02-26] MEDS ORDERED: SPIRIVA RESPIMAT4 GM IH (20:55)
[2017-02-26] MEDS ORDERED: ULTRAM50 MG PO (20:56)
[2017-02-26] MEDS ORDERED: MOBIC15 MG PO (20:57)
[2017-02-26] MEDS ORDERED: BUSPAR5 MG PO (20:58)
[2017-02-26] MEDS ORDERED: RISPERDAL0.5 MG PO (20:58)
[2017-02-26] MEDS ORDERED: DULERA 100 MCG/13 GM IH (21:01)
[2017-02-26] MEDS ORDERED: ZESTRIL5 MG PO (21:02)
[2017-02-26] MEDS ORDERED: POLY-VITAMIN1 EACH PO (21:03)
[2017-02-26] MEDS ORDERED: GLUCOPHAGE850 MG PO (21:03)
[2017-02-26] MEDS ORDERED: PAIN RELIEF325 M1 PO (21:04)
[2017-02-26] MEDS ORDERED: CALAN120 MG PO ×2 (21:05→21:06)
[2017-02-26] MEDS ORDERED: GLUCOTROL5 MG PO (21:06)
[2017-02-26] MEDS ORDERED: PRILOSEC20 MG PO (21:07)
[2017-02-26] MEDS ORDERED: ALLEGRA ALLERG180 MG PO (21:07)
[2017-02-26] MEDS ORDERED: IMDUR30 MG PO (21:08)
[2017-02-26] MEDS ORDERED: REMERON15 M2 PO (21:09)
[2017-02-27 06:06] LABS: POINT-OF-CARE METER ID UU14188576
[2017-02-27 07:35] VITALS: BP 131/71
[2017-02-27 11:55] LABS: POINT-OF-CARE METER ID UU14188576; POINT-OF-CARE USER ID BHSLRM
[2017-02-27 15:34] VITALS: BP 123/68
[2017-02-27 16:55] LABS: POINT-OF-CARE METER ID UU14188576; POINT-OF-CARE USER ID BHSLRM
[2017-02-28 05:55] LABS: POINT-OF-CARE METER ID UU14188576
[2017-02-28 07:00] LABS: POINT-OF-CARE METER ID UU14188576
[2017-02-28 07:44] VITALS: BP 123/61
[2017-02-28 15:37] VITALS: BP 100/57
[2017-03-01 06:40] LABS: POINT-OF-CARE METER ID UU14188576; POINT-OF-CARE USER ID ENVTLS63
[2017-03-01 07:07] LABS: POINT-OF-CARE METER ID UU14188576; POINT-OF-CARE USER ID BHSLEA
[2017-03-01 07:40] VITALS: BP 126/64
[2017-03-01 15:26] VITALS: BP 108/56
[2017-03-02 07:45] VITALS: BP 133/66
[2017-03-02 10:01] LABS: GLUCOSE 95 mg/dL (70-99)
[2017-03-02 10:56] LABS: Estimated Average Glucose 128 mg/dL (70-123); HEMOGLOBIN A1c (GLYCOHEMOGLOB) 6.1 % HGB (Below 5.7)
[2017-03-02 15:23] VITALS: BP 88/51
[2017-03-02 21:54] VITALS: BP 93/50
[2017-03-03 06:37] LABS: POINT-OF-CARE METER ID UU14188576; POINT-OF-CARE USER ID ENVTLS63
[2017-03-03 07:01] LABS: POINT-OF-CARE METER ID UU14188576; POINT-OF-CARE USER ID BHSLEA
[2017-03-03 08:02] VITALS: BP 101/61
[2017-03-03 11:24] VITALS: BP 129/73
[2017-03-03 16:04] VITALS: BP 99/54
[2017-03-03 22:59] LABS: POINT-OF-CARE METER ID UU14188576; POINT-OF-CARE USER ID ENVTLS63
== END 2017-03-03 23:24 | DRG 885 ==
LOC: EME 14:27 → 1WEST 18:11 → EDOF 18:11 → ENRESERV 18:52 → 1WEST 19:34 → ENRESERV 19:58 → CANRESERV 19:58 → 1WEST 03-02 10:53
PROVIDERS: Emergency Medicine; Psychiatry & Neurology Psychiatry
DX: F33.2 Major depressive disorder, recurrent severe without psychotic features (principal); R45.851 Suicidal ideations; F41.9 Anxiety disorder, unspecified; R07.9 Chest pain, unspecified; I47.1 Supraventricular tachycardia; E11.319 Type 2 diabetes mellitus with unspecified diabetic retinopathy without macular edema; H54.0 Blindness, both eyes; H91.90 Unspecified hearing loss, unspecified ear; Z60.4 Social exclusion and rejection; I10 Essential (primary) hypertension; E78.5 Hyperlipidemia, unspecified; I25.10 Atherosclerotic heart disease of native coronary artery without angina pectoris; I25.2 Old myocardial infarction; I25.5 Ischemic cardiomyopathy; J45.909 Unspecified asthma, uncomplicated; Z95.1 Presence of aortocoronary bypass graft; Z87.01 Personal history of pneumonia (recurrent); Z79.84 Long term (current) use of oral hypoglycemic drugs; Z82.49 Family history of ischemic heart disease and other diseases of the circulatory system; Z82.5 Family history of asthma and other chronic lower respiratory diseases; Z83.3 Family history of diabetes mellitus
CPT/HCPCS: 80048; 82607; 82746; 82947; 82948; 83036; 85027; 90839; 94640; 94640 76; 97150 GO; 97166 GO; 99281; 99285; G0480

== ENCOUNTER 2017-03-03 23:02 | Observation (INO) | payer OTHER ==
[~2017-03-03 23:02] MED LIST changes: +CALAN120 MG PO; +GLUCOPHAGE850 MG PO; +GLUCOTROL5 MG PO; +LO-DOSE ASPIRIN81 M1 PO; +LOPRESSOR25 MG PO; +PAIN RELIEF325 M1 PO; +POLY-VITAMIN1 EACH PO; +REMERON15 M2 PO
[2017-03-04 00:05] VITALS: BP 110/62
[2017-03-04 01:36] LABS: HEMATOCRIT 35.2 % (38.0-50.0); MCH 28.4 PG (29.0-34.0); MCHC 34.1 G/DL (30.0-36.0); MCV 83.2 FL (86-99); MEAN PLAT.VOLUME 10.6 uM^3 (9.0-12.4); PLATELET COUNT 227 K/uL (156-360); RBC DIS.WIDTH-CV 13.5 % (11.8-14.6); RBC DIS.WIDTH-SD 40.9 % (39-53); RED BLOOD COUNT 4.23 M/uL (4.00-5.50); WHITE BLOOD COUNT 11.4 K/uL (4.1-10.2)
[2017-03-04 01:39] LABS: CHLORIDE 100 mEq/L (99-109); SODIUM 139 mEq/L (136-147)
[2017-03-04 01:40] LABS: GLUCOSE 111 mg/dL (70-99)
[2017-03-04 01:42] LABS: ANION GAP 16 MEQ/L (2-14)
[2017-03-04 01:44] LABS: GFR ESTIMATE (CALCULATED) 57 mL/min/
[2017-03-04 01:46] LABS: UREA NITROGEN (BUN) 33 mg/dL (9-23)
[2017-03-04 01:50] LABS: TROP-I INTERPRETATION NEGATIVE; TROPONIN-I < 0.01 ng/mL (0.0-0.30)
[2017-03-04 04:28] VITALS: BP 106/59
[2017-03-04 05:35] LABS: HEMATOCRIT 31.6 % (38.0-50.0); MCH 28.7 PG (29.0-34.0); MCHC 34.2 G/DL (30.0-36.0); MEAN PLAT.VOLUME 10.1 uM^3 (9.0-12.4); PLATELET COUNT 196 K/uL (156-360); RBC DIS.WIDTH-CV 13.5 % (11.8-14.6); RBC DIS.WIDTH-SD 41.1 % (39-53); RED BLOOD COUNT 3.76 M/uL (4.00-5.50)
[2017-03-04 05:53] LABS: TROP-I INTERPRETATION NEGATIVE; TROPONIN-I < 0.01 ng/mL (0.0-0.30)
[2017-03-04 06:04] LABS: ALKALINE PHOSPHATASE 77 IU/L (3-129); ANION GAP 8 MEQ/L (2-14); CHLORIDE 102 MEQ/L (99-109); GFR ESTIMATE (CALCULATED) > 59 mL/min/; POTASSIUM 4.6 MEQ/L (3.7-5.4); SAMPLE HEMOLYSIS CHECK 0; SAMPLE ICTERIC CHECK 0; SAMPLE LIPEMIA CHECK 0; SODIUM 138 MEQ/L (136-147); TOTAL BILIRUBIN 0.3 MG/DL (0.0-1.0); UREA NITROGEN (BUN) 28 mg/dL (9-23)
[2017-03-04 06:10] LABS: GLUCOSE 72 mg/dL (70-99)
[2017-03-04 06:35] LABS: METH RESISTANT S AUREUS PCR POSITIVE (NEGATIVE)
[2017-03-04 06:36] LABS: PROBE CHECK PASS
[2017-03-04 08:06] LABS: POINT-OF-CARE METER ID UU13113700
[2017-03-04 09:04] LABS: POINT-OF-CARE METER ID UU13113700
[2017-03-04 09:13] VITALS: BP 143/73
[2017-03-04 12:02] LABS: POINT-OF-CARE METER ID UU13113831
[2017-03-04 12:20] LABS: TROP-I INTERPRETATION NEGATIVE; TROPONIN-I 0.01 ng/mL (0.0-0.30)
[2017-03-04 17:09] LABS: POINT-OF-CARE METER ID UU13113831
== END 2017-03-04 17:00 | disposition psychiatric hospital, planned readmission (93) ==
LOC: 5WEST 23:02 → ENRESERV 23:03 → 5WEST 23:23
PROVIDERS: Internal Medicine
DX: R07.9 Chest pain, unspecified (principal); R45.851 Suicidal ideations; F33.8 Other recurrent depressive disorders; I10 Essential (primary) hypertension; E11.9 Type 2 diabetes mellitus without complications; I25.10 Atherosclerotic heart disease of native coronary artery without angina pectoris; Z95.1 Presence of aortocoronary bypass graft; I25.5 Ischemic cardiomyopathy; I47.1 Supraventricular tachycardia; H54.0 Blindness, both eyes; E11.319 Type 2 diabetes mellitus with unspecified diabetic retinopathy without macular edema; Z82.49 Family history of ischemic heart disease and other diseases of the circulatory system; Z83.3 Family history of diabetes mellitus; Z82.5 Family history of asthma and other chronic lower respiratory diseases
CPT/HCPCS: 80048 91; 80053; 82948; 84484; 85027; 87641; 93005; 94640; G0378; J1644; J7030

== ENCOUNTER 2017-03-04 13:46 | Inpatient (IN) | payer OTHER ==
[~2017-03-04] VITALS: Ht 172.7 cm; Wt 189.0 kg
[2017-03-04 17:47] VITALS: BP 117/63
[2017-03-04 21:19] LABS: POINT-OF-CARE METER ID UU14188576
[2017-03-05 06:00] LABS: POINT-OF-CARE METER ID UU14188576
[2017-03-05 07:44] VITALS: BP 141/56
[2017-03-05 10:31] LABS: POINT-OF-CARE METER ID UU14188576
[2017-03-05 15:35] VITALS: BP 96/55
[2017-03-06 06:38] LABS: POINT-OF-CARE METER ID UU14188576
[2017-03-06 08:22] VITALS: BP 139/70
[2017-03-06 15:36] VITALS: BP 101/58
[2017-03-07 06:20] LABS: POINT-OF-CARE METER ID UU14188576; POINT-OF-CARE USER ID BHSSMG
[2017-03-07 07:04] VITALS: BP 117/70
[2017-03-07] MEDS ORDERED: EFFEXOR50 MG PO (09:31)
[2017-03-07] MEDS ORDERED: VENTOLIN HFA18 GM IH (09:31)
[2017-03-07] MEDS ORDERED: METOPROLOL TART75 MG PO (09:33)
[2017-03-08] MEDS ORDERED: NITROSTAT0.4 MG SL (20:55)
[2017-03-08] MEDS ORDERED: BUSPAR10 MG PO (20:56)
[2017-03-08] MEDS ORDERED: LOPRESSOR100 M1 PO (21:01)
[2017-03-08] MEDS ORDERED: REMERON30 M2 PO (21:01)
[2017-03-08] MEDS ORDERED: EFFEXOR XR150 MG PO (21:02)
== END 2017-03-07 13:32 | disposition home or self-care (01) | DRG 885 ==
LOC: 1WEST 13:46
PROVIDERS: Psychiatry & Neurology Psychiatry
DX: F33.2 Major depressive disorder, recurrent severe without psychotic features (principal); R45.851 Suicidal ideations; E11.39 Type 2 diabetes mellitus with other diabetic ophthalmic complication; H54.0 Blindness, both eyes; I10 Essential (primary) hypertension; E78.5 Hyperlipidemia, unspecified; J45.909 Unspecified asthma, uncomplicated; G43.909 Migraine, unspecified, not intractable, without status migrainosus; H91.90 Unspecified hearing loss, unspecified ear; I25.2 Old myocardial infarction; Z95.1 Presence of aortocoronary bypass graft
CPT/HCPCS: 80048 91; 80053; 82948; 84484; 85027; 87641; 93005; 94640; 94640 76; 99202; G0378; J1644; J7030

== ENCOUNTER 2017-03-08 17:21 | Observation (INO) | payer OTHER ==
[~2017-03-08] VITALS: Ht 172.7 cm; Wt 82.5 kg
[~2017-03-08 17:21] MED LIST changes: +EFFEXOR50 MG PO; +METOPROLOL TART75 MG PO
[2017-03-08 17:49] LABS: HEMATOCRIT 35.7 % (38.0-50.0); MCH 28.3 PG (29.0-34.0); MCHC 33.6 G/DL (30.0-36.0); MCV 84.2 FL (86-99); MEAN PLAT.VOLUME 8.9 uM^3 (9.0-12.4); PLATELET COUNT 241 K/uL (156-360); RBC DIS.WIDTH-CV 13.3 % (11.8-14.6); RBC DIS.WIDTH-SD 40.4 % (39-53); RED BLOOD COUNT 4.24 M/uL (4.00-5.50); WHITE BLOOD COUNT 8.1 K/uL (4.1-10.2)
[2017-03-08 18:01] LABS: CHLORIDE 104 mEq/L (99-109); SODIUM 139 mEq/L (136-147)
[2017-03-08 18:03] LABS: GLUCOSE 110 mg/dL (70-99)
[2017-03-08 18:04] LABS: ANION GAP 10 MEQ/L (2-14)
[2017-03-08 18:06] LABS: SERUM ETHYL ALCOHOL < 10 mg/dL
[2017-03-08 18:07] LABS: GFR ESTIMATE (CALCULATED) 52 mL/min/
[2017-03-08 18:08] LABS: UREA NITROGEN (BUN) 32 mg/dL (9-23)
[2017-03-08 18:15] LABS: TROP-I INTERPRETATION NEGATIVE; TROPONIN-I < 0.01 ng/mL (0.0-0.30)
[2017-03-08 18:23] LABS: POTASSIUM 6.2 MEQ/L (3.7-5.4)
[2017-03-08] MEDS ORDERED: NITROSTAT0.4 MG SL (20:55)
[2017-03-08] MEDS ORDERED: BUSPAR10 MG PO (20:56)
[2017-03-08] MEDS ORDERED: LOPRESSOR100 M1 PO (21:01)
[2017-03-08] MEDS ORDERED: REMERON30 M2 PO (21:01)
[2017-03-08] MEDS ORDERED: EFFEXOR XR150 MG PO (21:02)
[2017-03-08 21:48] VITALS: BP 172/81
[2017-03-08 23:21] LABS: TROP-I INTERPRETATION NEGATIVE; TROPONIN-I < 0.01 ng/mL (0.0-0.30)
[2017-03-09 00:10] VITALS: BP 160/80
[2017-03-09 04:13] VITALS: BP 142/80
[2017-03-09 06:10] LABS: MCH 27.8 PG (29.0-34.0); MCHC 33.2 G/DL (30.0-36.0); MCV 83.7 FL (86-99); MEAN PLAT.VOLUME 9.6 uM^3 (9.0-12.4); PLATELET COUNT 252 K/uL (156-360); RBC DIS.WIDTH-CV 13.1 % (11.8-14.6); RBC DIS.WIDTH-SD 39.8 % (39-53); RED BLOOD COUNT 4.42 M/uL (4.00-5.50); WHITE BLOOD COUNT 8.2 K/uL (4.1-10.2)
[2017-03-09 06:41] LABS: TROP-I INTERPRETATION NEGATIVE; TROPONIN-I 0.01 ng/mL (0.0-0.30)
[2017-03-09 06:58] LABS: ANION GAP 10 MEQ/L (2-14); CHLORIDE 101 MEQ/L (99-109); SAMPLE HEMOLYSIS CHECK 0; SAMPLE ICTERIC CHECK 0; SAMPLE LIPEMIA CHECK 0; SODIUM 139 MEQ/L (136-147); UREA NITROGEN (BUN) 24 mg/dL (9-23)
[2017-03-09 07:02] LABS: GFR ESTIMATE (CALCULATED) > 59 mL/min/; GLUCOSE 79 mg/dL (70-99); POTASSIUM 4.2 MEQ/L (3.7-5.4)
[2017-03-09 08:21] LABS: POINT-OF-CARE METER ID UU14162513
[2017-03-09 08:35] VITALS: BP 165/81
[2017-03-09 11:59] VITALS: BP 100/55
[2017-03-09 12:43] LABS: POINT-OF-CARE METER ID UU14162513
[2017-03-09] MEDS ORDERED: Vitamin B-12 SL (15:09)
[2017-03-09] MEDS ORDERED: NOVOLOG 10100 UNITS/ SC (15:10)
[2017-03-09 17:26] LABS: POINT-OF-CARE METER ID UU14162513
[2017-03-09 17:45] VITALS: BP 113/68
== END 2017-03-09 18:25 ==
LOC: EME 17:21 → EDOF 20:01 → 5WEST 20:01 → EDOF 20:01 → ENRESERV 20:04 → 5WEST 21:28
PROVIDERS: Hospitalist
DX: R07.89 Other chest pain (principal); E87.5 Hyperkalemia; N17.9 Acute kidney failure, unspecified; F33.2 Major depressive disorder, recurrent severe without psychotic features; I10 Essential (primary) hypertension; E11.319 Type 2 diabetes mellitus with unspecified diabetic retinopathy without macular edema; E78.5 Hyperlipidemia, unspecified; F41.9 Anxiety disorder, unspecified; I25.10 Atherosclerotic heart disease of native coronary artery without angina pectoris; Z95.1 Presence of aortocoronary bypass graft; R45.851 Suicidal ideations; H54.0 Blindness, both eyes; Z79.82 Long term (current) use of aspirin; Z79.4 Long term (current) use of insulin; Z79.84 Long term (current) use of oral hypoglycemic drugs
CPT/HCPCS: 71020; 80048; 82948; 84484; 85027; 93005; 93306; 94640; 94640 76; 99281; 99285; G0378; G0480; J1644; J7030; J7040

== ENCOUNTER 2017-03-09 17:51 | Inpatient (IN) | payer OTHER ==
[~2017-03-09] VITALS: Ht 172.7 cm; Wt 82.9 kg
[~2017-03-09 17:51] MED LIST changes: +BUSPAR10 MG PO; +EFFEXOR XR150 MG PO; +NOVOLOG 10100 UNITS/ SC; +REMERON30 M2 PO; +Vitamin B-12 SL
[2017-03-09 18:53] VITALS: BP 110/59
[2017-03-09 20:54] VITALS: BP 110/59
[2017-03-09 21:04] LABS: POINT-OF-CARE METER ID UU14188576
[2017-03-10 06:32] LABS: POINT-OF-CARE METER ID UU14188576
[2017-03-10 07:34] LABS: POINT-OF-CARE METER ID UU14188576; POINT-OF-CARE USER ID ENVTLS63
[2017-03-10 07:43] VITALS: BP 116/62
[2017-03-10 12:33] LABS: POINT-OF-CARE METER ID UU14188576; POINT-OF-CARE USER ID ENVTLS63
[2017-03-10 16:10] VITALS: BP 105/56
[2017-03-10 16:46] LABS: POINT-OF-CARE METER ID UU14188576; POINT-OF-CARE USER ID BHSMEW
[2017-03-11 07:16] VITALS: BP 157/79
[2017-03-11 15:24] VITALS: BP 80/50
[2017-03-12 06:26] LABS: POINT-OF-CARE METER ID UU14188576; POINT-OF-CARE USER ID ENVTLS63
[2017-03-12 07:35] VITALS: BP 121/71
[2017-03-12 15:32] VITALS: BP 122/58
[2017-03-13 06:19] LABS: POINT-OF-CARE METER ID UU14188576
[2017-03-13 07:41] VITALS: BP 118/70
[2017-03-13 15:58] VITALS: BP 127/62
[2017-03-14 06:14] LABS: POINT-OF-CARE METER ID UU14188576; POINT-OF-CARE USER ID BHSSMG
[2017-03-14 07:46] VITALS: BP 132/70
[2017-03-14 15:32] VITALS: BP 90/54
[2017-03-15 07:41] VITALS: BP 131/66
[2017-03-15 10:58] VITALS: BP 126/71
[2017-03-15 15:47] VITALS: BP 92/53
[2017-03-16 07:37] VITALS: BP 115/62
[2017-03-16 15:23] VITALS: BP 96/54
[2017-03-17 07:53] VITALS: BP 149/80
[2017-03-17 08:19] LABS: POINT-OF-CARE METER ID UU14188576
[2017-03-17 15:22] VITALS: BP 106/62
[2017-03-18 06:28] LABS: POINT-OF-CARE METER ID UU14188576; POINT-OF-CARE USER ID ENVTLS63
[2017-03-18 07:54] VITALS: BP 140/75
[2017-03-18 15:18] VITALS: BP 109/67
[2017-03-19 06:24] LABS: POINT-OF-CARE METER ID UU14188576
[2017-03-19 07:33] VITALS: BP 153/79
[2017-03-19 15:53] VITALS: BP 104/59
[2017-03-20 06:12] LABS: POINT-OF-CARE METER ID UU14188576
[2017-03-20 07:32] VITALS: BP 149/80
[2017-03-20 14:20] LABS: BACTERIA 4+ /HPF; CASTS NONE SEEN /LPF; CRYSTALS PRESENT; EPITHELIAL CELLS RARE /HPF; MUCUS NONE SEEN /LPF; RED BLOOD CELLS 0-5 /HPF (0-5); WHITE BLOOD CELLS 30-40 /HPF (0-5)
[2017-03-20 14:21] LABS: AMORPHOUS URATES CRYSTALS 3+
[2017-03-20 15:40] VITALS: BP 106/59
[2017-03-21 06:13] LABS: POINT-OF-CARE METER ID UU14188576; POINT-OF-CARE USER ID BHSSMG
[2017-03-21 07:22] VITALS: BP 110/68
[2017-03-21 15:54] VITALS: BP 103/56
[2017-03-22 06:17] LABS: POINT-OF-CARE METER ID UU14188576; POINT-OF-CARE USER ID ENVTLS63
[2017-03-22 07:52] VITALS: BP 115/64
[2017-03-22] MEDS ORDERED: POLY-VITAMIN1 EACH PO (09:42)
[2017-03-22] MEDS ORDERED: IMDUR30 MG PO (09:42)
[2017-03-22] MEDS ORDERED: DULERA 100 MCG/13 GM IH (09:42)
[2017-03-22] MEDS ORDERED: EFFEXOR XR150 MG PO (09:42)
[2017-03-22] MEDS ORDERED: SINGULAIR10 MG PO (09:42)
[2017-03-22] MEDS ORDERED: PRILOSEC20 MG PO (09:42)
[2017-03-22] MEDS ORDERED: NITROSTAT0.4 MG SL (09:42)
[2017-03-22] MEDS ORDERED: EFFEXOR XR75 MG PO ×2 (09:42→09:59)
[2017-03-22] MEDS ORDERED: LIPITOR20 MG PO (09:42)
[2017-03-22] MEDS ORDERED: GLIPIZIDE5 MG PO (09:42)
[2017-03-22] MEDS ORDERED: CALAN120 MG PO (09:42)
[2017-03-22] MEDS ORDERED: ARIPIPRAZOLE5 MG PO (09:42)
[2017-03-22] MEDS ORDERED: ZESTRIL5 MG PO (09:42)
[2017-03-22] MEDS ORDERED: ULTRAM50 MG PO (09:42)
[2017-03-22] MEDS ORDERED: Vitamin B-12 SL (09:42)
[2017-03-22] MEDS ORDERED: LO-DOSE ASPIRIN81 M1 PO (09:42)
[2017-03-22] MEDS ORDERED: MOBIC15 MG PO (09:42)
[2017-03-22] MEDS ORDERED: LASIX40 MG PO (09:42)
[2017-03-22] MEDS ORDERED: VENTOLIN HFA18 GM IH (09:42)
[2017-03-22] MEDS ORDERED: BUSPAR15 MG PO (09:42)
[2017-03-22] MEDS ORDERED: REMERON30 M2 PO (09:42)
[2017-03-22] MEDS ORDERED: FLOMAX0.4 MG PO (09:42)
[2017-03-22] MEDS ORDERED: ALLEGRA ALLERG180 MG PO (09:42)
[2017-03-22] MEDS ORDERED: SPIRIVA RESPIMAT4 GM IH (09:42)
[2017-03-22] MEDS ORDERED: METOPROLOL TART75 MG PO (09:44)
[2017-03-22] MEDS ORDERED: BACTRIM,SEPT1 TABLET PO (09:44)
== END 2017-03-22 15:20 | disposition home health service (06) | DRG 885 ==
LOC: 1WEST 17:51 → ENRESERV 17:52 → 1WEST 18:32
PROVIDERS: Psychiatry & Neurology Psychiatry
DX: F33.2 Major depressive disorder, recurrent severe without psychotic features (principal); N39.0 Urinary tract infection, site not specified; B96.1 Klebsiella pneumoniae [K. pneumoniae] as the cause of diseases classified elsewhere; E86.0 Dehydration; E11.9 Type 2 diabetes mellitus without complications; H54.0 Blindness, both eyes; I10 Essential (primary) hypertension; I25.10 Atherosclerotic heart disease of native coronary artery without angina pectoris; R45.851 Suicidal ideations; H91.90 Unspecified hearing loss, unspecified ear; E78.5 Hyperlipidemia, unspecified; Z79.82 Long term (current) use of aspirin; Z82.1 Family history of blindness and visual loss; I25.2 Old myocardial infarction; Z95.1 Presence of aortocoronary bypass graft; Z79.84 Long term (current) use of oral hypoglycemic drugs
CPT/HCPCS: 81015; 82948; 87077; 87086; 87186; 94640; 94640 76; 97150 GO; 97166 GO; 97533 GO; 99202

== ENCOUNTER 2017-04-28 19:53 | Inpatient (IN) | payer OTHER ==
[~2017-04-28] VITALS: Ht 172.7 cm; Wt 79.1 kg
[~2017-04-28 19:53] MED LIST changes: +ARIPIPRAZOLE5 MG PO; +BACTRIM,SEPT1 TABLET PO; +BUSPAR15 MG PO; +EFFEXOR XR75 MG PO
[2017-04-28 20:33] LABS: HEMATOCRIT 34.6 % (38.0-50.0); MCH 28.6 PG (29.0-34.0); MCHC 34.1 G/DL (30.0-36.0); MCV 83.8 FL (86-99); MEAN PLAT.VOLUME 10.2 uM^3 (9.0-12.4); PLATELET COUNT 167 K/uL (156-360); RBC DIS.WIDTH-CV 12.6 % (11.8-14.6); RBC DIS.WIDTH-SD 38.7 % (39-53); RED BLOOD COUNT 4.13 M/uL (4.00-5.50); WHITE BLOOD COUNT 6.1 K/uL (4.1-10.2)
[2017-04-28 20:41] LABS: CHLORIDE 101 mEq/L (99-109); POTASSIUM 4.7 mEq/L (3.7-5.4); SODIUM 138 mEq/L (136-147)
[2017-04-28 20:42] LABS: GLUCOSE 141 mg/dL (70-99)
[2017-04-28 20:44] LABS: ANION GAP 16 MEQ/L (2-14)
[2017-04-28 20:46] LABS: GFR ESTIMATE (CALCULATED) > 59 mL/min/
[2017-04-28 20:47] LABS: UREA NITROGEN (BUN) 24 mg/dL (9-23)
[2017-04-28 20:53] LABS: TROP-I INTERPRETATION NEGATIVE; TROPONIN-I < 0.01 ng/mL (0.0-0.30)
[2017-04-28] MEDS ORDERED: ABILIFY5 MG PO (21:27)
[2017-04-28] MEDS ORDERED: PRILOSEC20 MG PO (21:28)
[2017-04-28] MEDS ORDERED: GLUCOPHAGE850 MG PO (21:29)
[2017-04-28] MEDS ORDERED: RISPERDAL0.5 MG PO (21:29)
[2017-04-28] MEDS ORDERED: EFFEXOR XR150 MG PO (21:29)
[2017-04-28] MEDS ORDERED: LOPRESSOR100 M1 PO (21:30)
[2017-04-28 23:02] LABS: TROP-I INTERPRETATION NEGATIVE; TROPONIN-I < 0.01 ng/mL (0.0-0.30)
[2017-04-29 02:54] VITALS: BP 154/87
[2017-04-29 06:13] LABS: POINT-OF-CARE METER ID UU14188576; POINT-OF-CARE USER ID ENVTLS63
[2017-04-29 09:20] VITALS: BP 126/66
[2017-04-29 11:49] LABS: POINT-OF-CARE METER ID UU14188576
[2017-04-29 15:33] VITALS: BP 89/50
[2017-04-29 17:00] LABS: POINT-OF-CARE METER ID UU14188576
[2017-04-29 20:41] LABS: POINT-OF-CARE METER ID UU14188576; POINT-OF-CARE USER ID BHSSMG
[2017-04-30 06:33] LABS: POINT-OF-CARE METER ID UU14188576
[2017-04-30 07:26] LABS: POINT-OF-CARE METER ID UU14188576
[2017-04-30 08:07] VITALS: BP 142/80
[2017-04-30 11:23] LABS: POINT-OF-CARE METER ID UU14188576
[2017-04-30 12:11] LABS: POINT-OF-CARE METER ID UU14188576
[2017-04-30 15:58] VITALS: BP 104/61
[2017-04-30 17:19] LABS: POINT-OF-CARE METER ID UU14188576; POINT-OF-CARE USER ID BHSMEW
[2017-04-30 17:55] LABS: POINT-OF-CARE METER ID UU14188576
[2017-04-30 18:17] LABS: POINT-OF-CARE METER ID UU14188576; POINT-OF-CARE USER ID BHSMEW
[2017-04-30 21:29] LABS: POINT-OF-CARE METER ID UU14188576
[2017-05-01 06:31] LABS: POINT-OF-CARE METER ID UU14188576
[2017-05-01 07:58] VITALS: BP 140/76
[2017-05-01 08:53] LABS: POINT-OF-CARE METER ID UU14188576; POINT-OF-CARE USER ID BHSTSA
[2017-05-01 12:18] LABS: POINT-OF-CARE METER ID UU14188576; POINT-OF-CARE USER ID BHSTSA
[2017-05-01 15:35] VITALS: BP 106/59
[2017-05-01 17:03] LABS: POINT-OF-CARE METER ID UU14188576
[2017-05-01 21:37] LABS: POINT-OF-CARE METER ID UU14188576
[2017-05-02 06:22] LABS: POINT-OF-CARE METER ID UU14188576
[2017-05-02 06:31] LABS: POINT-OF-CARE METER ID UU14188576
[2017-05-02 07:41] VITALS: BP 136/76
[2017-05-02 11:48] LABS: POINT-OF-CARE METER ID UU14188576; POINT-OF-CARE USER ID BHSTSA
[2017-05-02] MEDS ORDERED: ARIPIPRAZOLE10 MG PO (12:24)
[2017-05-02 16:05] VITALS: BP 130/71
== END 2017-05-02 16:13 | disposition home or self-care (01) | DRG 885 ==
LOC: EME → EDBD 19:53 → 1WEST 04-29 00:19 → EDOF 04-29 00:19 → ENRESERV 04-29 01:30 → 1WEST 04-29 02:48
PROVIDERS: Emergency Medicine; Psychiatry & Neurology Psychiatry
DX: F33.2 Major depressive disorder, recurrent severe without psychotic features (principal); R45.851 Suicidal ideations; F43.23 Adjustment disorder with mixed anxiety and depressed mood; R07.89 Other chest pain; Z59.9 Problem related to housing and economic circumstances, unspecified; E11.9 Type 2 diabetes mellitus without complications; H54.7 Unspecified visual loss; H91.90 Unspecified hearing loss, unspecified ear; F10.10 Alcohol abuse, uncomplicated; I25.10 Atherosclerotic heart disease of native coronary artery without angina pectoris; I10 Essential (primary) hypertension; J45.909 Unspecified asthma, uncomplicated; I25.2 Old myocardial infarction; Z95.1 Presence of aortocoronary bypass graft; Z79.82 Long term (current) use of aspirin; Z79.84 Long term (current) use of oral hypoglycemic drugs
CPT/HCPCS: 71010; 80048; 82948; 84484; 85027; 90839; 93005; 94640; 94640 76; 99202; 99281; 99285; J2060; J2405

== ENCOUNTER 2017-08-15 02:34 | Inpatient (IN) | payer OTHER ==
[~2017-08-15] VITALS: Ht 172.7 cm; Wt 89.0 kg
[~2017-08-15 02:34] MED LIST changes: +ABILIFY5 MG PO; +ARIPIPRAZOLE10 MG PO
[2017-08-15 02:56] LABS: HEMATOCRIT 37.2 % (38.0-50.0); HEMOGLOBIN 13.3 G/DL (12.5-16.6); MCH 28.5 PG (29.0-34.0); MCHC 35.8 G/DL (30.0-36.0); MCV 79.8 FL (86-99); PLATELET COUNT 203 K/uL (156-360); RBC DIS.WIDTH-CV 12.3 % (11.8-14.6); RED BLOOD COUNT 4.66 M/uL (4.00-5.50); WHITE BLOOD COUNT 8.5 K/uL (4.1-10.2)
[2017-08-15 03:09] LABS: ALBUMIN 3.7 g/dL (3.2-4.8); CHLORIDE 89 mEq/L (99-109); SODIUM 124 mEq/L (136-147)
[2017-08-15 03:12] LABS: TOTAL PROTEIN 8.1 g/dL (6.4-8.3)
[2017-08-15 03:13] LABS: TOTAL BILIRUBIN 0.7 mg/dL (0.0-1.0)
[2017-08-15 03:15] LABS: ALKALINE PHOSPHATASE 144 IU/L (3-129); CREATININE 1.3 mg/dL (0.6-1.3); GFR ESTIMATE (CALCULATED) > 59 mL/min/ (58.99-99999)
[2017-08-15 03:16] LABS: UREA NITROGEN (BUN) 14 mg/dL (9-23)
[2017-08-15 03:17] LABS: AST (GOT) 69 IU/L (2-34)
[2017-08-15 03:18] LABS: ALT (GPT) 48 IU/L (3-49); LIPASE 509 U/L (1.0-51.0)
[2017-08-15 03:24] LABS: GLUCOSE 456 mg/dL (70-99); TROP-I INTERPRETATION NEGATIVE; TROPONIN-I 0.01 ng/mL (0.0-0.30)
[2017-08-15 05:20] LABS: APPEARANCE CLEAR ((CLEAR)); BILIRUBIN NEGATIVE; BLOOD SMALL; COLOR STRAW ((YELLOW)); GLUCOSE (STRIP) >=500; KETONES NEGATIVE; LEUKOCYTES NEGATIVE; NITRITE NEGATIVE; PROTEIN (STRIP) NEGATIVE; SPECIFIC GRAVITY 1.039 (1.000-1.030); UROBILINOGEN 0.2 MG/DL (0.2-1.0)
[2017-08-15 05:29] LABS: BACTERIA NONE SEEN /HPF; EPITHELIAL CELLS NONE SEEN /HPF; MUCUS NONE SEEN /LPF; RED BLOOD CELLS 0-5 /HPF (0-5); UCUL ADDED? NO; WHITE BLOOD CELLS 0-5 /HPF (0-5)
[2017-08-15 08:19] VITALS: BP 141/75
[2017-08-15 11:30] VITALS: BP 134/80
[2017-08-15 13:40] LABS: CHLORIDE 94 MEQ/L (99-109); CREATININE 0.9 MG/DL (0.6-1.3); GFR ESTIMATE (CALCULATED) > 59 mL/min/ (58.99-99999); GLUCOSE 295 mg/dL (70-99); POTASSIUM 3.3 MEQ/L (3.7-5.4); UREA NITROGEN (BUN) 9 mg/dL (9-23)
[2017-08-15 13:47] LABS: SODIUM 133 MEQ/L (136-147)
[2017-08-15 16:11] VITALS: BP 120/67
[2017-08-15 19:45] VITALS: BP 120/66
[2017-08-15 23:35] VITALS: BP 114/63
[2017-08-16 04:03] VITALS: BP 111/61
[2017-08-16 05:50] LABS: CHLORIDE 99 MEQ/L (99-109); GFR ESTIMATE (CALCULATED) > 59 mL/min/ (58.99-99999); GLUCOSE 235 mg/dL (70-99); POTASSIUM 3.7 MEQ/L (3.7-5.4); SODIUM 134 MEQ/L (136-147); UREA NITROGEN (BUN) 12 mg/dL (9-23)
[2017-08-16 08:28] VITALS: BP 93/50
[2017-08-16 11:45] VITALS: BP 101/50
[2017-08-16 16:28] VITALS: BP 120/60
[2017-08-16 20:17] VITALS: BP 108/56
[2017-08-16 23:09] VITALS: BP 107/57
[2017-08-17 03:30] VITALS: BP 128/65
[2017-08-17 05:10] LABS: POTASSIUM 3.5 mEq/L (3.7-5.4); SODIUM 132 mEq/L (136-147)
[2017-08-17 05:12] LABS: GLUCOSE 230 mg/dL (70-99)
[2017-08-17 05:16] LABS: CREATININE 1.2 mg/dL (0.6-1.3); GFR ESTIMATE (CALCULATED) > 59 mL/min/ (58.99-99999); UREA NITROGEN (BUN) 16 mg/dL (9-23)
[2017-08-17 05:18] LABS: CHLORIDE 98 mEq/L (99-109)
[2017-08-17 08:17] VITALS: BP 113/59
[2017-08-17 12:03] VITALS: BP 111/59
[2017-08-17 15:46] VITALS: BP 140/70
[2017-08-17 19:58] VITALS: BP 147/71
[2017-08-17 23:11] VITALS: BP 142/69
[2017-08-18 03:03] VITALS: BP 113/65
[2017-08-18 06:11] LABS: CHLORIDE 98 MEQ/L (99-109); CREATININE 0.8 MG/DL (0.6-1.3); GFR ESTIMATE (CALCULATED) > 59 mL/min/ (58.99-99999); GLUCOSE 161 mg/dL (70-99); POTASSIUM 3.1 MEQ/L (3.7-5.4); SODIUM 135 MEQ/L (136-147); UREA NITROGEN (BUN) 12 mg/dL (9-23)
[2017-08-18 08:16] VITALS: BP 147/70
[2017-08-18 11:24] VITALS: BP 101/62
[2017-08-18 15:32] VITALS: BP 121/67
[2017-08-18 20:10] VITALS: BP 100/56
[2017-08-18 23:42] VITALS: BP 116/63
[2017-08-19 03:28] VITALS: BP 109/62
[2017-08-19 06:08] LABS: CHLORIDE 99 MEQ/L (99-109); CREATININE 1.1 MG/DL (0.6-1.3); GFR ESTIMATE (CALCULATED) > 59 mL/min/ (58.99-99999); GLUCOSE 297 mg/dL (70-99); POTASSIUM 4.2 MEQ/L (3.7-5.4); SODIUM 135 MEQ/L (136-147); UREA NITROGEN (BUN) 19 mg/dL (9-23)
[2017-08-19 07:08] VITALS: BP 110/57
[2017-08-19 11:39] VITALS: BP 164/55
[2017-08-19] MEDS ORDERED: RISPERDAL0.5 MG PO (15:14)
[2017-08-19] MEDS ORDERED: ABILIFY10 MG PO (15:15)
[2017-08-19] MEDS ORDERED: METOPROLOL TART75 MG PO (15:15)
[2017-08-19] MEDS ORDERED: DULERA 100 MCG/13 GM IH (15:16)
[2017-08-19] MEDS ORDERED: GLUCOPHAGE850 MG PO (15:17)
[2017-08-19] MEDS ORDERED: BUSPAR5 MG PO (15:20)
[2017-08-19] MEDS ORDERED: REMERON15 M2 PO (15:21)
[2017-08-19] MEDS ORDERED: VENLAFAXINE HC100 MG PO (15:22)
[2017-08-19] MEDS ORDERED: LASIX40 MG PO (15:25)
[2017-08-19] MEDS ORDERED: ALPHAGAN 0100 DROP/5 BOTH EYES (15:25)
[2017-08-19 15:39] VITALS: BP 114/56
[2017-08-19 19:47] VITALS: BP 145/70
[2017-08-19 23:41] VITALS: BP 138/77
[2017-08-20 04:16] VITALS: BP 161/79
[2017-08-20 05:58] LABS: BASOPHIL (%) 0.3 % (0-1); EOSINOPHIL (%) 0 % (0-5); HEMATOCRIT 35.7 % (38.0-50.0); HEMOGLOBIN 11.9 G/DL (12.5-16.6); IMMATURE GRANULOCYTE (%) 1.8 % (0.0-0.7); LYMPHOCYTE COUNT 1.1 K/uL (1.0-2.8); MCH 27.4 PG (29.0-34.0); MCHC 33.3 G/DL (30.0-36.0); MCV 82.3 FL (86-99); MONOCYTE (%) 5.4 % (3-12); MONOCYTE COUNT 0.5 K/uL (0-0.8); NEUTROPHIL (%) 79.5 % (45-76); PLATELET COUNT 244 K/uL (156-360); RBC DIS.WIDTH-CV 12.5 % (11.8-14.6); RBC DIS.WIDTH-SD 37.3 % (39-53); RED BLOOD COUNT 4.34 M/uL (4.00-5.50); WHITE BLOOD COUNT 8.8 K/uL (4.1-10.2)
[2017-08-20 06:15] LABS: CHLORIDE 94 MEQ/L (99-109); GFR ESTIMATE (CALCULATED) > 59 mL/min/ (58.99-99999); GLUCOSE 221 mg/dL (70-99); POTASSIUM 4.1 MEQ/L (3.7-5.4); SODIUM 134 MEQ/L (136-147); UREA NITROGEN (BUN) 21 mg/dL (9-23)
[2017-08-20 08:30] VITALS: BP 141/76
[2017-08-20 11:30] VITALS: BP 136/76
== END 2017-08-20 14:57 | disposition home health service (06) | DRG 202 ==
LOC: EME → EDBD 02:34 → EDOF 06:55 → 3EAST 06:55 → ENRESERV 07:15 → EDOF 07:58 → 3EAST 08:03
PROVIDERS: Emergency Medicine; Family Medicine
DX: J20.8 Acute bronchitis due to other specified organisms (principal); E87.1 Hypo-osmolality and hyponatremia; E11.65 Type 2 diabetes mellitus with hyperglycemia; J45.909 Unspecified asthma, uncomplicated; A08.4 Viral intestinal infection, unspecified; E86.0 Dehydration; E87.6 Hypokalemia; R09.02 Hypoxemia; R33.9 Retention of urine, unspecified; R91.1 Solitary pulmonary nodule; I10 Essential (primary) hypertension; I25.10 Atherosclerotic heart disease of native coronary artery without angina pectoris; G47.33 Obstructive sleep apnea (adult) (pediatric); I25.5 Ischemic cardiomyopathy; I35.0 Nonrheumatic aortic (valve) stenosis; F32.9 Major depressive disorder, single episode, unspecified; H54.8 Legal blindness, as defined in USA; Z23 Encounter for immunization; I25.2 Old myocardial infarction; Z95.1 Presence of aortocoronary bypass graft; Z87.11 Personal history of peptic ulcer disease
CPT/HCPCS: 71045; 71046; 74177; 80048; 80048 91; 80053; 81003; 82565; 82948; 83605; 83690; 83880; 84484; 84520; 85025; 85027; 87040; 87502; 90686; 93005; 94640; 94640 76; 94760; 94799; 99202; 99281; 99285; J1650; J1815; J2270; J2405; J2920; J3480; J7030; J7512

== ENCOUNTER 2017-09-04 23:01 | Observation (INO) | payer OTHER ==
[~2017-09-04] VITALS: Ht 172.7 cm; Wt 77.3 kg
[~2017-09-04 23:01] MED LIST changes: +ABILIFY10 MG PO; +ALPHAGAN 0100 DROP/5 BOTH EYES; +VENLAFAXINE HC100 MG PO
[2017-09-04 23:59] LABS: BASOPHIL COUNT 0.1 K/uL (0-0.1); EOSINOPHIL (%) 5.4 % (0-5); EOSINOPHIL COUNT 0.3 K/uL (0-0.3); HEMATOCRIT 37.3 % (38.0-50.0); HEMOGLOBIN 13.4 G/DL (12.5-16.6); IMMATURE GRANULOCYTE (%) 0.7 % (0.0-0.7); LYMPHOCYTE (%) 34.2 % (15-42); LYMPHOCYTE COUNT 2.1 K/uL (1.0-2.8); MCH 28.7 PG (29.0-34.0); MCHC 35.9 G/DL (30.0-36.0); MCV 79.9 FL (86-99); MONOCYTE (%) 7.5 % (3-12); MONOCYTE COUNT 0.5 K/uL (0-0.8); NEUTROPHIL (%) 51.2 % (45-76); NEUTROPHIL COUNT 3.1 K/uL (1.8-6.4); PLATELET COUNT 208 K/uL (156-360); RBC DIS.WIDTH-CV 12.4 % (11.8-14.6); RBC DIS.WIDTH-SD 35.8 % (39-53); RED BLOOD COUNT 4.67 M/uL (4.00-5.50); WHITE BLOOD COUNT 6.1 K/uL (4.1-10.2)
[2017-09-05 00:05] LABS: CHLORIDE 94 mEq/L (99-109); POTASSIUM 3.5 mEq/L (3.7-5.4); SODIUM 132 mEq/L (136-147)
[2017-09-05 00:06] LABS: GLUCOSE 331 mg/dL (70-99)
[2017-09-05 00:10] LABS: CREATININE 1.5 mg/dL (0.6-1.3); GFR ESTIMATE (CALCULATED) 52 mL/min/ (58.99-99999)
[2017-09-05 00:11] LABS: UREA NITROGEN (BUN) 11 mg/dL (9-23)
[2017-09-05 00:18] LABS: TROP-I INTERPRETATION NEGATIVE; TROPONIN-I 0.02 ng/mL (0.0-0.30)
[2017-09-05] MEDS ORDERED: TRAMADOL HCL50 MG PO (00:24)
[2017-09-05] MEDS ORDERED: RISPERIDONE0.5 MG PO (00:25)
[2017-09-05] MEDS ORDERED: DULERA 100 MCG/13 GM IH (00:33)
[2017-09-05] MEDS ORDERED: OMEPRAZOLE20 MG PO (00:38)
[2017-09-05] MEDS ORDERED: MONTELUKAST SOD10 MG PO (00:42)
[2017-09-05 01:21] LABS: BASE EXCESS 2.7 mEq/L (-3 to +3); BICARBONATE 27.9 mEq/L (22-26); CARBOXY HGB 1.6 % (0-5); COMMENTS - BLOOD GASES C+; MODE RA; PCO2 44 mm Hg (35-45); PO2 71 mm Hg (80-100); SITE LB; pH 7.41 (7.35-7.45)
[2017-09-05 01:22] LABS: TOTAL RESP RATE 16 resp/min
[2017-09-05 02:53] LABS: TROP-I INTERPRETATION NEGATIVE; TROPONIN-I 0.02 ng/mL (0.0-0.30)
[2017-09-05 04:19] LABS: SERUM ETHYL ALCOHOL < 10 mg/dL
[2017-09-05 10:24] VITALS: BP 166/92
[2017-09-05 11:24] VITALS: BP 122/77
[2017-09-05 15:30] VITALS: BP 113/65
[2017-09-05] MEDS ORDERED: EFFEXOR XR150 MG PO (16:15)
[2017-09-05 19:10] VITALS: BP 100/60
[2017-09-05 23:40] VITALS: BP 86/53
[2017-09-06 03:54] VITALS: BP 132/64
[2017-09-06 06:51] LABS: TROP-I INTERPRETATION NEGATIVE; TROPONIN-I 0.01 ng/mL (0.0-0.30)
[2017-09-06 09:16] VITALS: BP 145/70
[2017-09-06 11:34] VITALS: BP 117/68
== END 2017-09-06 16:45 | disposition home or self-care (01) ==
LOC: EME → EDBD 23:01 → EDOF 09-05 05:43 → 5WEST 09-05 05:43 → EDOF 09-05 05:43 → ENRESERV 09-05 05:47 → 5WEST 09-05 09:52
PROVIDERS: Emergency Medicine; Hospitalist; Internal Medicine Cardiovascular Disease; Student in an Organized Health Care Education/Training Program
DX: R07.89 Other chest pain (principal); R33.9 Retention of urine, unspecified; I10 Essential (primary) hypertension; E11.65 Type 2 diabetes mellitus with hyperglycemia; N17.9 Acute kidney failure, unspecified; J44.9 Chronic obstructive pulmonary disease, unspecified; F43.23 Adjustment disorder with mixed anxiety and depressed mood; I25.10 Atherosclerotic heart disease of native coronary artery without angina pectoris; I25.2 Old myocardial infarction; Z95.1 Presence of aortocoronary bypass graft; E78.5 Hyperlipidemia, unspecified; E11.319 Type 2 diabetes mellitus with unspecified diabetic retinopathy without macular edema; H54.8 Legal blindness, as defined in USA; I35.0 Nonrheumatic aortic (valve) stenosis; Z87.11 Personal history of peptic ulcer disease; Z91.19 Patient's noncompliance with other medical treatment and regimen; Z79.84 Long term (current) use of oral hypoglycemic drugs
CPT/HCPCS: 36600; 71046; 80048; 82803; 82948; 84484; 85025; 90839; 93005; 94640; 94640 76; 94799; 99202; 99281; 99284; G0378; G0480; J1644; J1815; J7030

== ENCOUNTER 2017-09-30 13:27 | Observation (INO) | payer OTHER ==
[~2017-09-30] VITALS: Ht 172.7 cm; Wt 83.8 kg
[~2017-09-30 13:27] MED LIST changes: +RISPERIDONE0.5 MG PO
[2017-09-30 14:08] LABS: HEMATOCRIT 39.2 % (38.0-50.0); HEMOGLOBIN 13.2 G/DL (12.5-16.6); MCH 28.4 PG (29.0-34.0); MCHC 33.7 G/DL (30.0-36.0); MCV 84.5 FL (86-99); PLATELET COUNT 220 K/uL (156-360); RBC DIS.WIDTH-CV 12.5 % (11.8-14.6); RBC DIS.WIDTH-SD 38.1 % (39-53); RED BLOOD COUNT 4.64 M/uL (4.00-5.50); WHITE BLOOD COUNT 6.6 K/uL (4.1-10.2)
[2017-09-30 14:16] LABS: CHLORIDE 100 mEq/L (99-109); POTASSIUM 4.7 mEq/L (3.7-5.4); SODIUM 134 mEq/L (136-147)
[2017-09-30 14:18] LABS: GLUCOSE 100 mg/dL (70-99)
[2017-09-30 14:22] LABS: CREATININE 1.1 mg/dL (0.6-1.3); GFR ESTIMATE (CALCULATED) > 59 mL/min/ (58.99-99999)
[2017-09-30 14:23] LABS: UREA NITROGEN (BUN) 17 mg/dL (9-23)
[2017-09-30 14:26] LABS: TROP-I INTERPRETATION NEGATIVE; TROPONIN-I < 0.01 ng/mL (0.0-0.30)
[2017-09-30 14:46] LABS: APPEARANCE CLEAR ((CLEAR)); BILIRUBIN NEGATIVE; BLOOD NEGATIVE; COLOR STRAW ((YELLOW)); GLUCOSE (STRIP) NEGATIVE; KETONES NEGATIVE; LEUKOCYTES TRACE; NITRITE NEGATIVE; PROTEIN (STRIP) NEGATIVE; SPECIFIC GRAVITY 1.003 (1.000-1.030); UROBILINOGEN 0.2 MG/DL (0.2-1.0)
[2017-09-30] MEDS ORDERED: TRADJENTA5 MG PO (14:52)
[2017-09-30] MEDS ORDERED: TRAMADOL HCL E100 M1 PO (14:53)
[2017-09-30] MEDS ORDERED: RISPERDAL0.5 MG PO (14:54)
[2017-09-30] MEDS ORDERED: MOBIC15 MG PO (14:54)
[2017-09-30] MEDS ORDERED: DULERA 100 MCG/13 GM IH (14:54)
[2017-09-30] MEDS ORDERED: ZESTRIL5 MG PO (14:55)
[2017-09-30] MEDS ORDERED: ONCE DAILY1 EACH PO (14:55)
[2017-09-30] MEDS ORDERED: GLUCOPHAGE850 MG PO (14:55)
[2017-09-30] MEDS ORDERED: TYLENOL REGULA325 MG PO (14:56)
[2017-09-30] MEDS ORDERED: VERAPAMIL HCL120 MG PO (14:56)
[2017-09-30] MEDS ORDERED: ALLEGRA ALLERG180 MG PO (14:57)
[2017-09-30] MEDS ORDERED: GLUCOTROL5 MG PO (14:57)
[2017-09-30 14:58] LABS: BACTERIA RARE /HPF; EPITHELIAL CELLS NONE SEEN /HPF; MUCUS NONE SEEN /LPF; RED BLOOD CELLS 0-5 /HPF (0-5); UCUL ADDED? YES
[2017-09-30] MEDS ORDERED: OMEPRAZOLE40 M1 PO (14:58)
[2017-09-30] MEDS ORDERED: IMDUR30 MG PO (14:59)
[2017-09-30] MEDS ORDERED: REMERON15 M2 PO (15:00)
[2017-09-30] MEDS ORDERED: VENTOLIN HFA18 GM IH (15:01)
[2017-09-30] MEDS ORDERED: VENLAFAXINE HC100 MG PO (15:01)
[2017-09-30] MEDS ORDERED: SINGULAIR10 MG PO (15:02)
[2017-09-30] MEDS ORDERED: LOW DOSE ASPIRI81 M1 PO (15:02)
[2017-09-30] MEDS ORDERED: FLOMAX0.4 MG PO (15:02)
[2017-09-30] MEDS ORDERED: NITROSTAT0.4 MG SL (15:03)
[2017-09-30] MEDS ORDERED: LIPITOR20 MG PO (15:03)
[2017-09-30] MEDS ORDERED: LASIX40 MG PO (15:03)
[2017-09-30] MEDS ORDERED: SPIRIVA RESPIMAT4 G1 IH (15:04)
[2017-09-30] MEDS ORDERED: METOPROLOL TART75 MG PO (15:05)
[2017-09-30 15:42] VITALS: BP 158/77
[2017-09-30 20:23] VITALS: BP 116/66
[2017-09-30 21:34] LABS: TROP-I INTERPRETATION NEGATIVE; TROPONIN-I < 0.01 ng/mL (0.0-0.30)
[2017-10-01 00:16] VITALS: BP 137/71
[2017-10-01 04:37] VITALS: BP 162/77
[2017-10-01 06:26] LABS: TROP-I INTERPRETATION NEGATIVE; TROPONIN-I < 0.01 ng/mL (0.0-0.30)
[2017-10-01 07:25] VITALS: BP 145/77
[2017-10-01 11:22] VITALS: BP 143/80
[2017-10-01 13:45] LABS: TROP-I INTERPRETATION NEGATIVE; TROPONIN-I < 0.01 ng/mL (0.0-0.30)
[2017-10-01 15:36] VITALS: BP 144/61
[2017-10-01 19:30] VITALS: BP 141/75
[2017-10-01 22:20] LABS: TROP-I INTERPRETATION NEGATIVE; TROPONIN-I 0.01 ng/mL (0.0-0.30)
[2017-10-02] VITALS (7 sets, daily range): BP systolic 120–150; BP diastolic 69–81
[2017-10-02 05:51] LABS: TROP-I INTERPRETATION NEGATIVE; TROPONIN-I 0.01 ng/mL (0.0-0.30)
[2017-10-02 14:21] LABS: TROP-I INTERPRETATION NEGATIVE; TROPONIN-I < 0.01 ng/mL (0.0-0.30)
[2017-10-02 21:54] LABS: TROP-I INTERPRETATION NEGATIVE; TROPONIN-I < 0.01 ng/mL (0.0-0.30)
[2017-10-03 03:25] VITALS: BP 142/78
[2017-10-03 05:45] LABS: BASOPHIL (%) 0.8 % (0-1); BASOPHIL COUNT 0.1 K/uL (0-0.1); EOSINOPHIL (%) 1.4 % (0-5); EOSINOPHIL COUNT 0.1 K/uL (0-0.3); HEMATOCRIT 41.1 % (38.0-50.0); HEMOGLOBIN 13.9 G/DL (12.5-16.6); IMMATURE GRANULOCYTE (%) 1.3 % (0.0-0.7); LYMPHOCYTE (%) 20.7 % (15-42); LYMPHOCYTE COUNT 1.7 K/uL (1.0-2.8); MCH 27.8 PG (29.0-34.0); MCHC 33.8 G/DL (30.0-36.0); MCV 82.2 FL (86-99); MONOCYTE (%) 6.8 % (3-12); MONOCYTE COUNT 0.6 K/uL (0-0.8); NEUTROPHIL COUNT 5.8 K/uL (1.8-6.4); PLATELET COUNT 238 K/uL (156-360); RBC DIS.WIDTH-CV 12.4 % (11.8-14.6); RBC DIS.WIDTH-SD 37.2 % (39-53); WHITE BLOOD COUNT 8.4 K/uL (4.1-10.2)
[2017-10-03 05:59] LABS: CHLORIDE 97 MEQ/L (99-109); CREATININE 1.1 MG/DL (0.6-1.3); GFR ESTIMATE (CALCULATED) > 59 mL/min/ (58.99-99999); GLUCOSE 108 mg/dL (70-99); POTASSIUM 4.5 MEQ/L (3.7-5.4); SODIUM 137 MEQ/L (136-147); UREA NITROGEN (BUN) 19 mg/dL (9-23)
[2017-10-03 08:24] VITALS: BP 144/85
[2017-10-03 12:29] VITALS: BP 154/87
== END 2017-10-03 17:17 | disposition home or self-care (01) ==
LOC: EME 13:27 → EDOF 14:33 → 4EAST 14:33 → ENRESERV 14:49 → 4EAST 15:34 → ENPENDDIS 10-03 → 4EAST 10-03 17:17
PROVIDERS: Family Medicine; Nurse Practitioner Family
DX: R07.89 Other chest pain (principal); F41.9 Anxiety disorder, unspecified; F33.40 Major depressive disorder, recurrent, in remission, unspecified; R45.851 Suicidal ideations; N39.0 Urinary tract infection, site not specified; B96.1 Klebsiella pneumoniae [K. pneumoniae] as the cause of diseases classified elsewhere; I25.10 Atherosclerotic heart disease of native coronary artery without angina pectoris; Z95.1 Presence of aortocoronary bypass graft; I42.9 Cardiomyopathy, unspecified; E11.22 Type 2 diabetes mellitus with diabetic chronic kidney disease; I12.0 Hypertensive chronic kidney disease with stage 5 chronic kidney disease or end stage renal disease; N18.6 End stage renal disease; I25.2 Old myocardial infarction; I35.0 Nonrheumatic aortic (valve) stenosis; J44.9 Chronic obstructive pulmonary disease, unspecified; E11.319 Type 2 diabetes mellitus with unspecified diabetic retinopathy without macular edema; Z87.11 Personal history of peptic ulcer disease; H54.8 Legal blindness, as defined in USA; N40.0 Benign prostatic hyperplasia without lower urinary tract symptoms; E78.5 Hyperlipidemia, unspecified; Z79.82 Long term (current) use of aspirin; Z79.4 Long term (current) use of insulin
CPT/HCPCS: 71046; 80048; 81003; 82948; 84484; 85025; 85027; 87077; 87086; 87186; 93005; 94640; 94640 76; 94799; 99202; 99281; 99285; G0378; J0696; J2270; J7030

== ENCOUNTER 2017-10-11 11:37 | Emergency (ER) | payer OTHER ==
[~2017-10-11] VITALS: Ht 172.7 cm; Wt 81.8 kg
[~2017-10-11 11:37] MED LIST changes: +LOW DOSE ASPIRI81 M1 PO; +SPIRIVA RESPIMAT4 G1 IH; +TRAMADOL HCL E100 M1 PO
[2017-10-11 12:08] LABS: HEMOGLOBIN 12.4 G/DL (12.5-16.6); MCHC 34.4 G/DL (30.0-36.0); MCV 84.3 FL (86-99); PLATELET COUNT 233 K/uL (156-360); RBC DIS.WIDTH-CV 12.6 % (11.8-14.6); RBC DIS.WIDTH-SD 38.1 % (39-53); RED BLOOD COUNT 4.27 M/uL (4.00-5.50); WHITE BLOOD COUNT 8.6 K/uL (4.1-10.2)
[2017-10-11 12:35] LABS: CHLORIDE 99 MEQ/L (99-109); CREATININE 1.7 MG/DL (0.6-1.3); GFR ESTIMATE (CALCULATED) 45 mL/min/ (58.99-99999); GLUCOSE 253 mg/dL (70-99); SODIUM 131 MEQ/L (136-147); UREA NITROGEN (BUN) 25 mg/dL (9-23)
[2017-10-11 12:38] LABS: TROP-I INTERPRETATION NEGATIVE; TROPONIN-I < 0.01 ng/mL (0.0-0.30)
[2017-10-11 13:01] LABS: ABS NEUTROPHIL COUNT 5.4; BAND NEUTROPHILS 0.9 % (0-8.0); BASOPHILS 1.7 %; EOSINOPHIL ABS CT 0.7; EOSINOPHILS 8.7 % (0-5.0); LYMPHOCYTES 16.5 % (15.0-45.0); MONOCYTES 5.2 % (0-9.0); MYELOCYTES 5.2 %; PLAT.SUFFICIENCY ADEQUATE; SEG.NEUTROPHILS 61.8 % (46.0-76.0)
[2017-10-11 14:42] LABS: TROP-I INTERPRETATION NEGATIVE; TROPONIN-I < 0.01 ng/mL (0.0-0.30)
[2017-10-11 15:45] VITALS: BP 111/77
== END 2017-10-11 15:59 | disposition home or self-care (01) ==
LOC: EME 11:37
PROVIDERS: Emergency Medicine
DX: F41.9 Anxiety disorder, unspecified (principal); R07.89 Other chest pain; J44.9 Chronic obstructive pulmonary disease, unspecified; I50.9 Heart failure, unspecified; E11.9 Type 2 diabetes mellitus without complications; F31.9 Bipolar disorder, unspecified; F32.9 Major depressive disorder, single episode, unspecified; I25.2 Old myocardial infarction; Z95.1 Presence of aortocoronary bypass graft; Z79.82 Long term (current) use of aspirin
CPT/HCPCS: 71045; 80048; 84484; 85025; 93005; 99281; 99284; J7030

== ENCOUNTER 2017-10-12 10:57 | Emergency (ER) | payer OTHER ==
[~2017-10-12] VITALS: Ht 172.7 cm; Wt 89.1 kg
[2017-10-12 11:56] LABS: HEMATOCRIT 35.1 % (38.0-50.0); HEMOGLOBIN 11.9 G/DL (12.5-16.6); MCH 28.5 PG (29.0-34.0); MCHC 33.9 G/DL (30.0-36.0); MCV 84.2 FL (86-99); PLATELET COUNT 243 K/uL (156-360); RBC DIS.WIDTH-SD 39.3 % (39-53); RED BLOOD COUNT 4.17 M/uL (4.00-5.50); WHITE BLOOD COUNT 10.1 K/uL (4.1-10.2)
[2017-10-12 12:04] LABS: CHLORIDE 103 mEq/L (99-109); POTASSIUM 5.6 mEq/L (3.7-5.4); SODIUM 134 mEq/L (136-147)
[2017-10-12 12:06] LABS: GLUCOSE 173 mg/dL (70-99)
[2017-10-12 12:10] LABS: CREATININE 1.8 mg/dL (0.6-1.3); GFR ESTIMATE (CALCULATED) 42 mL/min/ (58.99-99999)
[2017-10-12 12:11] LABS: UREA NITROGEN (BUN) 33 mg/dL (9-23)
[2017-10-12 12:17] LABS: TROP-I INTERPRETATION NEGATIVE; TROPONIN-I 0.01 ng/mL (0.0-0.30)
[2017-10-12 15:01] VITALS: BP 87/62
== END 2017-10-12 15:02 | disposition home or self-care (01) ==
LOC: EME 10:57
PROVIDERS: Emergency Medicine
DX: R11.10 Vomiting, unspecified (principal); R07.89 Other chest pain; E11.65 Type 2 diabetes mellitus with hyperglycemia; Z79.84 Long term (current) use of oral hypoglycemic drugs; F32.9 Major depressive disorder, single episode, unspecified; I25.2 Old myocardial infarction; J44.9 Chronic obstructive pulmonary disease, unspecified; I50.9 Heart failure, unspecified; F41.9 Anxiety disorder, unspecified; Z95.1 Presence of aortocoronary bypass graft
CPT/HCPCS: 80048; 84484; 85027; 93005; 99281; 99285; J2405; J7030

== ENCOUNTER 2017-10-13 10:28 | Emergency (ER) | payer OTHER ==
[~2017-10-13] VITALS: Ht 172.7 cm; Wt 94.8 kg
[2017-10-13 11:18] LABS: BASOPHIL (%) 0.5 % (0-1); EOSINOPHIL (%) 1.4 % (0-5); EOSINOPHIL COUNT 0.1 K/uL (0-0.3); HEMATOCRIT 32.8 % (38.0-50.0); HEMOGLOBIN 11.1 G/DL (12.5-16.6); IMMATURE GRANULOCYTE (%) 1.9 % (0.0-0.7); LYMPHOCYTE (%) 16.1 % (15-42); LYMPHOCYTE COUNT 1.4 K/uL (1.0-2.8); MCH 28.4 PG (29.0-34.0); MCHC 33.8 G/DL (30.0-36.0); MCV 83.9 FL (86-99); MONOCYTE COUNT 0.5 K/uL (0-0.8); NEUTROPHIL (%) 74.1 % (45-76); NEUTROPHIL COUNT 6.3 K/uL (1.8-6.4); PLATELET COUNT 171 K/uL (156-360); RBC DIS.WIDTH-SD 39.8 % (39-53); RED BLOOD COUNT 3.91 M/uL (4.00-5.50); WHITE BLOOD COUNT 8.5 K/uL (4.1-10.2)
[2017-10-13 11:28] LABS: CHLORIDE 104 mEq/L (99-109); POTASSIUM 5.3 mEq/L (3.7-5.4); SODIUM 134 mEq/L (136-147)
[2017-10-13 11:30] LABS: GLUCOSE 133 mg/dL (70-99)
[2017-10-13 11:33] LABS: SERUM ETHYL ALCOHOL < 10 mg/dL
[2017-10-13 11:34] LABS: CREATININE 1.5 mg/dL (0.6-1.3); GFR ESTIMATE (CALCULATED) 52 mL/min/ (58.99-99999)
[2017-10-13 11:35] LABS: UREA NITROGEN (BUN) 33 mg/dL (9-23)
[2017-10-13 12:41] VITALS: BP 139/65
== END 2017-10-13 12:44 | disposition home or self-care (01) ==
LOC: EME 10:28
PROVIDERS: Emergency Medicine
DX: F32.9 Major depressive disorder, single episode, unspecified (principal); F41.9 Anxiety disorder, unspecified; Z04.6 Encounter for general psychiatric examination, requested by authority; E11.9 Type 2 diabetes mellitus without complications; Z79.84 Long term (current) use of oral hypoglycemic drugs; J44.9 Chronic obstructive pulmonary disease, unspecified; I25.2 Old myocardial infarction; H54.8 Legal blindness, as defined in USA; Z95.1 Presence of aortocoronary bypass graft; I50.9 Heart failure, unspecified
CPT/HCPCS: 80048; 81003; 85025; 90837; 99281; 99285; G0480

== ENCOUNTER 2017-10-21 00:06 | Emergency (ER) | payer OTHER ==
[~2017-10-21] VITALS: Ht 172.7 cm; Wt 88.4 kg
[2017-10-21 00:34] LABS: HEMATOCRIT 34.6 % (38.0-50.0); HEMOGLOBIN 11.7 G/DL (12.5-16.6); MCH 28.4 PG (29.0-34.0); MCHC 33.8 G/DL (30.0-36.0); PLATELET COUNT 206 K/uL (156-360); RBC DIS.WIDTH-SD 40.1 % (39-53); RED BLOOD COUNT 4.12 M/uL (4.00-5.50); WHITE BLOOD COUNT 6.7 K/uL (4.1-10.2)
[2017-10-21 00:42] LABS: D-DIMER ELISA < 150.00 ng/mLDDU (<230)
[2017-10-21 00:47] LABS: CHLORIDE 101 mEq/L (99-109); POTASSIUM 5.3 mEq/L (3.7-5.4); SODIUM 135 mEq/L (136-147)
[2017-10-21 00:48] LABS: GLUCOSE 199 mg/dL (70-99)
[2017-10-21 00:52] LABS: CREATININE 1.4 mg/dL (0.6-1.3); GFR ESTIMATE (CALCULATED) 56 mL/min/ (58.99-99999)
[2017-10-21 00:53] LABS: UREA NITROGEN (BUN) 33 mg/dL (9-23)
[2017-10-21 01:02] LABS: TROP-I INTERPRETATION NEGATIVE; TROPONIN-I < 0.01 ng/mL (0.0-0.30)
[2017-10-21 04:32] LABS: TROP-I INTERPRETATION NEGATIVE; TROPONIN-I < 0.01 ng/mL (0.0-0.30)
[2017-10-21 05:35] VITALS: BP 128/72
== END 2017-10-21 05:35 | disposition home or self-care (01) ==
LOC: EME → EDBD 00:06 → EME 00:06
PROVIDERS: Nurse Practitioner Family
DX: R07.9 Chest pain, unspecified (principal); R11.2 Nausea with vomiting, unspecified; R06.02 Shortness of breath; I10 Essential (primary) hypertension; J44.9 Chronic obstructive pulmonary disease, unspecified; I25.2 Old myocardial infarction; E11.9 Type 2 diabetes mellitus without complications; Z79.84 Long term (current) use of oral hypoglycemic drugs; Z95.1 Presence of aortocoronary bypass graft; Z79.82 Long term (current) use of aspirin
CPT/HCPCS: 71046; 80048; 84484; 85027; 85379; 93005; 99281; 99285

== ENCOUNTER 2017-11-05 22:09 | Inpatient (IN) | payer OTHER ==
[~2017-11-05] VITALS: Ht 172.7 cm; Wt 85.8 kg
[~2017-11-05 22:09] MED LIST changes: +VENLAFAXINE HC150 M1 PO
[2017-11-05 23:12] LABS: BASOPHIL (%) 0.4 % (0-1); EOSINOPHIL (%) 1.2 % (0-5); EOSINOPHIL COUNT 0.1 K/uL (0-0.3); HEMATOCRIT 35.2 % (38.0-50.0); HEMOGLOBIN 12.3 G/DL (12.5-16.6); IMMATURE GRANULOCYTE (%) 1.7 % (0.0-0.7); LYMPHOCYTE (%) 18.6 % (15-42); LYMPHOCYTE COUNT 1.4 K/uL (1.0-2.8); MCHC 34.9 G/DL (30.0-36.0); MONOCYTE (%) 8.2 % (3-12); MONOCYTE COUNT 0.6 K/uL (0-0.8); NEUTROPHIL (%) 69.9 % (45-76); NEUTROPHIL COUNT 5.3 K/uL (1.8-6.4); PLATELET COUNT 283 K/uL (156-360); RBC DIS.WIDTH-CV 12.6 % (11.8-14.6); RBC DIS.WIDTH-SD 36.2 % (39-53); WHITE BLOOD COUNT 7.6 K/uL (4.1-10.2)
[2017-11-05 23:13] LABS: INTER. NORMALIZED RATIO 1.1
[2017-11-05 23:14] LABS: ALBUMIN 3.7 g/dL (3.2-4.8)
[2017-11-05 23:15] LABS: CHLORIDE 99 mEq/L (99-109); POTASSIUM 4.4 mEq/L (3.7-5.4); PTT 35.4 SEC (25-37); SODIUM 135 mEq/L (136-147)
[2017-11-05 23:17] LABS: GLUCOSE 217 mg/dL (70-99); TOTAL PROTEIN 7.6 g/dL (6.4-8.3)
[2017-11-05 23:19] LABS: TOTAL BILIRUBIN 0.4 mg/dL (0.0-1.0)
[2017-11-05 23:20] LABS: ALKALINE PHOSPHATASE 121 IU/L (3-129)
[2017-11-05 23:21] LABS: CREATININE 1.2 mg/dL (0.6-1.3); GFR ESTIMATE (CALCULATED) > 59 mL/min/ (58.99-99999)
[2017-11-05 23:22] LABS: AST (GOT) 14 IU/L (2-34); UREA NITROGEN (BUN) 32 mg/dL (9-23)
[2017-11-05 23:24] LABS: ALT (GPT) 29 IU/L (3-49); LIPASE 89 U/L (1.0-51.0)
[2017-11-05 23:27] LABS: TROP-I INTERPRETATION NEGATIVE; TROPONIN-I < 0.01 ng/mL (0.0-0.30)
[2017-11-06 01:23] LABS: APPEARANCE CLOUDY ((CLEAR)); BILIRUBIN NEGATIVE; BLOOD SMALL; COLOR YELLOW ((YELLOW)); GLUCOSE (STRIP) 50; KETONES NEGATIVE; LEUKOCYTES LARGE; NITRITE NEGATIVE; PROTEIN (STRIP) 100; SPECIFIC GRAVITY 1.015 (1.000-1.030)
[2017-11-06 01:38] LABS: BACTERIA 3+ /HPF; EPITHELIAL CELLS 2+ /HPF; MUCUS 2+ /LPF; RED BLOOD CELLS 0-5 /HPF (0-5); UCUL ADDED? YES
[2017-11-06 04:55] VITALS: BP 128/63
[2017-11-06 08:15] VITALS: BP 121/75
[2017-11-06 08:30] VITALS: BP 135/97
[2017-11-06] MEDS ORDERED: AMLODIPINE BESYL5 MG PO (10:16)
[2017-11-06] MEDS ORDERED: SENNA8.6 MG PO (10:16)
[2017-11-06] MEDS ORDERED: COLACE100 MG PO (10:16)
[2017-11-06] MEDS ORDERED: MIRALAX17 GM PO (10:17)
[2017-11-06] MEDS ORDERED: ALPHAGAN 0100 DROP/5 LEFT EYE (10:17)
[2017-11-06] MEDS ORDERED: BUSPAR10 MG PO (10:17)
[2017-11-06 15:55] VITALS: BP 103/58
[2017-11-06 22:00] VITALS: BP 123/67
[2017-11-06 23:15] VITALS: BP 120/71
[2017-11-07 07:16] VITALS: BP 145/86
[2017-11-07 16:26] VITALS: BP 121/64
[2017-11-07 21:39] VITALS: BP 111/69
[2017-11-07 23:40] VITALS: BP 105/59
[2017-11-08 05:56] LABS: BASOPHIL (%) 0.8 % (0-1); BASOPHIL COUNT 0.1 K/uL (0-0.1); EOSINOPHIL (%) 3.2 % (0-5); EOSINOPHIL COUNT 0.3 K/uL (0-0.3); HEMATOCRIT 35.7 % (38.0-50.0); IMMATURE GRANULOCYTE (%) 3.1 % (0.0-0.7); LYMPHOCYTE (%) 27.2 % (15-42); LYMPHOCYTE COUNT 2.3 K/uL (1.0-2.8); MCH 27.6 PG (29.0-34.0); MCHC 33.6 G/DL (30.0-36.0); MCV 82.1 FL (86-99); MONOCYTE (%) 6.6 % (3-12); MONOCYTE COUNT 0.6 K/uL (0-0.8); NEUTROPHIL (%) 59.1 % (45-76); PLATELET COUNT 319 K/uL (156-360); RBC DIS.WIDTH-CV 12.5 % (11.8-14.6); RBC DIS.WIDTH-SD 37.3 % (39-53); RED BLOOD COUNT 4.35 M/uL (4.00-5.50); WHITE BLOOD COUNT 8.5 K/uL (4.1-10.2)
[2017-11-08 06:27] LABS: CHLORIDE 100 MEQ/L (99-109); CREATININE 1.2 MG/DL (0.6-1.3); GFR ESTIMATE (CALCULATED) > 59 mL/min/ (58.99-99999); POTASSIUM 4.7 MEQ/L (3.7-5.4); SODIUM 137 MEQ/L (136-147); UREA NITROGEN (BUN) 33 mg/dL (9-23)
[2017-11-08 06:28] LABS: GLUCOSE 64 mg/dL (70-99)
[2017-11-08 08:00] VITALS: BP 132/75
[2017-11-08 15:00] VITALS: BP 136/72
[2017-11-08 21:03] VITALS: BP 100/58
[2017-11-09 00:02] VITALS: BP 127/70
[2017-11-09 06:21] LABS: BASOPHIL (%) 1.1 % (0-1); BASOPHIL COUNT 0.1 K/uL (0-0.1); EOSINOPHIL (%) 3.4 % (0-5); EOSINOPHIL COUNT 0.3 K/uL (0-0.3); HEMATOCRIT 34.8 % (38.0-50.0); HEMOGLOBIN 11.8 G/DL (12.5-16.6); IMMATURE GRANULOCYTE (%) 2.4 % (0.0-0.7); LYMPHOCYTE (%) 24.2 % (15-42); LYMPHOCYTE COUNT 2.2 K/uL (1.0-2.8); MCH 27.6 PG (29.0-34.0); MCHC 33.9 G/DL (30.0-36.0); MCV 81.5 FL (86-99); MONOCYTE (%) 5.7 % (3-12); MONOCYTE COUNT 0.5 K/uL (0-0.8); NEUTROPHIL (%) 63.2 % (45-76); NEUTROPHIL COUNT 5.6 K/uL (1.8-6.4); PLATELET COUNT 287 K/uL (156-360); RBC DIS.WIDTH-CV 12.6 % (11.8-14.6); RED BLOOD COUNT 4.27 M/uL (4.00-5.50); WHITE BLOOD COUNT 8.9 K/uL (4.1-10.2)
[2017-11-09 06:41] LABS: CHLORIDE 99 MEQ/L (99-109); CREATININE 1.1 MG/DL (0.6-1.3); GFR ESTIMATE (CALCULATED) > 59 mL/min/ (58.99-99999); GLUCOSE 58 mg/dL (70-99); POTASSIUM 4.6 MEQ/L (3.7-5.4); SODIUM 136 MEQ/L (136-147); UREA NITROGEN (BUN) 35 mg/dL (9-23)
[2017-11-09 07:43] VITALS: BP 116/67
[2017-11-09] MEDS ORDERED: BACTRIM,SEPT1 TABLET PO (11:11)
[2017-11-09 15:45] VITALS: BP 101/60
== END 2017-11-09 16:31 | disposition home health service (06) | DRG 690 ==
LOC: EME → EDBD 22:09 → EME 22:09 → 5EAST 11-06 01:50 → EDOF 11-06 01:50 → ENRESERV 11-06 02:05 → 5EAST 11-06 03:59
PROVIDERS: Emergency Medicine; Family Medicine
DX: N10 Acute pyelonephritis (principal); F33.9 Major depressive disorder, recurrent, unspecified; D64.9 Anemia, unspecified; E11.319 Type 2 diabetes mellitus with unspecified diabetic retinopathy without macular edema; E78.5 Hyperlipidemia, unspecified; E86.0 Dehydration; B96.1 Klebsiella pneumoniae [K. pneumoniae] as the cause of diseases classified elsewhere; H54.8 Legal blindness, as defined in USA; I11.0 Hypertensive heart disease with heart failure; I25.10 Atherosclerotic heart disease of native coronary artery without angina pectoris; N31.2 Flaccid neuropathic bladder, not elsewhere classified; R33.9 Retention of urine, unspecified; F41.9 Anxiety disorder, unspecified; I25.2 Old myocardial infarction; Z95.1 Presence of aortocoronary bypass graft; Z87.11 Personal history of peptic ulcer disease; Z83.3 Family history of diabetes mellitus; Z82.5 Family history of asthma and other chronic lower respiratory diseases
CPT/HCPCS: 71045; 74176; 80048; 80053; 81003; 82948; 83605; 83690; 83880; 84484; 85025; 85610; 85730; 87040; 87077; 87086; 87186; 93005; 94640; 94640 76; 99281; 99285; J0692; J1815; J2405; J7030

== ENCOUNTER 2017-11-11 21:31 | Emergency (ER) | payer OTHER ==
[~2017-11-11] VITALS: Ht 172.7 cm; Wt 82.2 kg
[~2017-11-11 21:31] MED LIST changes: +ALPHAGAN 0100 DROP/5 LEFT EYE; +COLACE100 MG PO; +MIRALAX17 GM PO; +SENNA8.6 MG PO
[2017-11-11 22:13] LABS: HEMATOCRIT 37.4 % (38.0-50.0); HEMOGLOBIN 13.2 G/DL (12.5-16.6); MCH 28.3 PG (29.0-34.0); MCHC 35.3 G/DL (30.0-36.0); MCV 80.3 FL (86-99); PLATELET COUNT 285 K/uL (156-360); RBC DIS.WIDTH-CV 12.6 % (11.8-14.6); RED BLOOD COUNT 4.66 M/uL (4.00-5.50); WHITE BLOOD COUNT 8.1 K/uL (4.1-10.2)
[2017-11-11 22:23] LABS: APPEARANCE SL.HAZY ((CLEAR)); BILIRUBIN NEGATIVE; BLOOD SMALL; COLOR YELLOW ((YELLOW)); GLUCOSE (STRIP) 150; KETONES NEGATIVE; LEUKOCYTES NEGATIVE; NITRITE NEGATIVE; PROTEIN (STRIP) 30; SPECIFIC GRAVITY 1.008 (1.000-1.030); UROBILINOGEN 0.2 MG/DL (0.2-1.0)
[2017-11-11 22:33] LABS: BACTERIA RARE /HPF; EPITHELIAL CELLS RARE /HPF; HYALINE CASTS 0-5 /LPF; MUCUS TRACE /LPF; RED BLOOD CELLS 0-5 /HPF (0-5); UCUL ADDED? NO; WHITE BLOOD CELLS 0-5 /HPF (0-5)
[2017-11-11 23:36] LABS: ALBUMIN 4.1 G/DL (3.2-4.8); ALKALINE PHOSPHATASE 102 IU/L (3-129); ALT (GPT) 23 IU/L (3-49); AST (GOT) 17 IU/L (2-34); CHLORIDE 96 MEQ/L (99-109); CREATININE 1.4 MG/DL (0.6-1.3); GFR ESTIMATE (CALCULATED) 56 mL/min/ (58.99-99999); LIPASE 103 U/L (1.0-51.0); POTASSIUM 4.3 MEQ/L (3.7-5.4); SODIUM 131 MEQ/L (136-147); TOTAL BILIRUBIN 0.4 MG/DL (0.0-1.0); TOTAL PROTEIN 7.8 G/DL (6.4-8.3); UREA NITROGEN (BUN) 36 mg/dL (9-23)
[2017-11-11 23:45] LABS: GLUCOSE 180 mg/dL (70-99)
[2017-11-12] MEDS ORDERED: PEPCID20 MG PO (01:30)
[2017-11-12] MEDS ORDERED: CARAFATE1 GM PO (01:30)
[2017-11-12 01:52] VITALS: BP 121/56
== END 2017-11-12 01:53 | disposition home or self-care (01) ==
LOC: EME → EDBD 21:31 → EME 11-12 01:53
DX: R10.13 Epigastric pain (principal); Z87.440 Personal history of urinary (tract) infections; I25.2 Old myocardial infarction; J44.9 Chronic obstructive pulmonary disease, unspecified; I50.9 Heart failure, unspecified; F41.9 Anxiety disorder, unspecified; F32.9 Major depressive disorder, single episode, unspecified; F10.10 Alcohol abuse, uncomplicated; E11.9 Type 2 diabetes mellitus without complications; Z95.1 Presence of aortocoronary bypass graft; Z79.82 Long term (current) use of aspirin; Z79.84 Long term (current) use of oral hypoglycemic drugs; K80.20 Calculus of gallbladder without cholecystitis without obstruction; N12 Tubulo-interstitial nephritis, not specified as acute or chronic; N40.0 Benign prostatic hyperplasia without lower urinary tract symptoms
CPT/HCPCS: 76705; 76775; 80053; 81003; 83690; 85027; 99281; 99285; J7030

== ENCOUNTER 2017-11-20 02:11 | Emergency (ER) | payer OTHER ==
[~2017-11-20] VITALS: Ht 172.7 cm; Wt 83.2 kg
[~2017-11-20 02:11] MED LIST changes: +CARAFATE1 GM PO; +PEPCID20 MG PO
[2017-11-20 02:51] LABS: HEMATOCRIT 34.6 % (38.0-50.0); HEMOGLOBIN 12.1 G/DL (12.5-16.6); MCH 28.2 PG (29.0-34.0); MCV 80.7 FL (86-99); PLATELET COUNT 245 K/uL (156-360); RBC DIS.WIDTH-SD 37.4 % (39-53); RED BLOOD COUNT 4.29 M/uL (4.00-5.50); WHITE BLOOD COUNT 7.5 K/uL (4.1-10.2)
[2017-11-20 03:01] LABS: ALBUMIN 3.9 g/dL (3.2-4.8); CHLORIDE 101 mEq/L (99-109); POTASSIUM 4.1 mEq/L (3.7-5.4)
[2017-11-20 03:02] LABS: SODIUM 141 mEq/L (136-147)
[2017-11-20 03:04] LABS: GLUCOSE 258 mg/dL (70-99); TOTAL PROTEIN 7.1 g/dL (6.4-8.3)
[2017-11-20 03:06] LABS: TOTAL BILIRUBIN 0.3 mg/dL (0.0-1.0)
[2017-11-20 03:07] LABS: ALKALINE PHOSPHATASE 85 IU/L (3-129)
[2017-11-20 03:08] LABS: CREATININE 1.1 mg/dL (0.6-1.3); GFR ESTIMATE (CALCULATED) > 59 mL/min/ (58.99-99999)
[2017-11-20 03:09] LABS: AST (GOT) 18 IU/L (2-34); DIRECT BILIRUBIN 0.1 mg/dL (0.0-0.3); UREA NITROGEN (BUN) 19 mg/dL (9-23)
[2017-11-20 03:10] LABS: ALT (GPT) 30 IU/L (3-49)
[2017-11-20 03:11] LABS: LIPASE 141 U/L (1.0-51.0)
[2017-11-20 03:16] LABS: TROP-I INTERPRETATION NEGATIVE; TROPONIN-I 0.01 ng/mL (0.0-0.30)
[2017-11-20 04:25] LABS: APPEARANCE CLOUDY ((CLEAR)); BILIRUBIN NEGATIVE; BLOOD SMALL; COLOR YELLOW ((YELLOW)); GLUCOSE (STRIP) 150; KETONES NEGATIVE; LEUKOCYTES MODERATE; NITRITE NEGATIVE; PROTEIN (STRIP) 30; SPECIFIC GRAVITY 1.009 (1.000-1.030); UROBILINOGEN 0.2 MG/DL (0.2-1.0)
[2017-11-20 04:44] LABS: TROP-I INTERPRETATION NEGATIVE; TROPONIN-I 0.01 ng/mL (0.0-0.30)
[2017-11-20 04:53] LABS: BACTERIA 3+ /HPF; EPITHELIAL CELLS NONE SEEN /HPF; MUCUS NONE SEEN /LPF; RED BLOOD CELLS NONE SEEN /HPF (0-5); UCUL ADDED? YES; WHITE BLOOD CELLS 40-50 /HPF (0-5)
[2017-11-20] MEDS ORDERED: CIPRO500 MG PO (05:10)
[2017-11-20 10:16] VITALS: BP 133/71
== END 2017-11-20 10:50 | disposition home or self-care (01) ==
LOC: EME 02:11
PROVIDERS: Emergency Medicine
DX: N39.0 Urinary tract infection, site not specified (principal); B96.1 Klebsiella pneumoniae [K. pneumoniae] as the cause of diseases classified elsewhere; R07.89 Other chest pain; E11.9 Type 2 diabetes mellitus without complications; Z79.84 Long term (current) use of oral hypoglycemic drugs; I10 Essential (primary) hypertension; I50.9 Heart failure, unspecified; J44.9 Chronic obstructive pulmonary disease, unspecified; I25.2 Old myocardial infarction; F32.9 Major depressive disorder, single episode, unspecified; G43.909 Migraine, unspecified, not intractable, without status migrainosus; H54.8 Legal blindness, as defined in USA; F31.9 Bipolar disorder, unspecified; F41.9 Anxiety disorder, unspecified; Z79.82 Long term (current) use of aspirin; Z91.5 Personal history of self-harm; Z87.19 Personal history of other diseases of the digestive system; Z95.1 Presence of aortocoronary bypass graft
CPT/HCPCS: 74176; 80048; 80076; 81003; 83605; 83690; 84484; 85027; 87077; 87086; 87186; 90839; 93005; 99281; 99284; J7030

== ENCOUNTER 2017-11-26 16:19 | Emergency (ER) | payer OTHER ==
[~2017-11-26] VITALS: Ht 172.7 cm; Wt 85.2 kg
[~2017-11-26 16:19] MED LIST changes: +CIPRO500 MG PO
[2017-11-26 17:37] LABS: HEMATOCRIT 38.2 % (38.0-50.0); HEMOGLOBIN 13.4 G/DL (12.5-16.6); MCH 28.5 PG (29.0-34.0); MCHC 35.1 G/DL (30.0-36.0); MCV 81.3 FL (86-99); PLATELET COUNT 198 K/uL (156-360); RBC DIS.WIDTH-CV 13.2 % (11.8-14.6); RBC DIS.WIDTH-SD 38.6 % (39-53); WHITE BLOOD COUNT 6.1 K/uL (4.1-10.2)
[2017-11-26 17:54] LABS: ALBUMIN 3.9 g/dL (3.2-4.8); CHLORIDE 101 mEq/L (99-109); SODIUM 136 mEq/L (136-147)
[2017-11-26 17:57] LABS: GLUCOSE 382 mg/dL (70-99); TOTAL PROTEIN 7.4 g/dL (6.4-8.3)
[2017-11-26 18:00] LABS: ALKALINE PHOSPHATASE 94 IU/L (3-129)
[2017-11-26 18:02] LABS: AST (GOT) 23 IU/L (2-34)
[2017-11-26 18:03] LABS: ALT (GPT) 43 IU/L (3-49)
[2017-11-26 18:04] LABS: LIPASE 92 U/L (1.0-51.0)
[2017-11-26 18:05] LABS: TROP-I INTERPRETATION NEGATIVE; TROPONIN-I 0.01 ng/mL (0.0-0.30)
[2017-11-26 18:12] LABS: CREATININE 1.6 mg/dL (0.6-1.3); GFR ESTIMATE (CALCULATED) 48 mL/min/ (58.99-99999); POTASSIUM 5.1 mEq/L (3.7-5.4); TOTAL BILIRUBIN 0.4 mg/dL (0.0-1.0); UREA NITROGEN (BUN) 29 mg/dL (9-23)
[2017-11-26 19:35] LABS: TROP-I INTERPRETATION NEGATIVE; TROPONIN-I 0.01 ng/mL (0.0-0.30)
[2017-11-26 20:54] VITALS: BP 117/76
== END 2017-11-26 21:30 | disposition home or self-care (01) ==
LOC: EME 16:19
PROVIDERS: Emergency Medicine
DX: R07.9 Chest pain, unspecified (principal); J44.9 Chronic obstructive pulmonary disease, unspecified; E11.9 Type 2 diabetes mellitus without complications; Z79.84 Long term (current) use of oral hypoglycemic drugs; I25.2 Old myocardial infarction; I25.10 Atherosclerotic heart disease of native coronary artery without angina pectoris; I50.9 Heart failure, unspecified; Z95.1 Presence of aortocoronary bypass graft; F32.9 Major depressive disorder, single episode, unspecified; F41.9 Anxiety disorder, unspecified; H54.8 Legal blindness, as defined in USA
CPT/HCPCS: 71045; 80053; 83690; 84484; 85027; 93005; 99281; 99285

== ENCOUNTER 2017-12-03 14:22 | Emergency (ER) | payer OTHER ==
[~2017-12-03] VITALS: Ht 172.7 cm; Wt 86.6 kg
[2017-12-03 14:55] LABS: HEMATOCRIT 35.5 % (38.0-50.0); HEMOGLOBIN 12.4 G/DL (12.5-16.6); MCH 28.2 PG (29.0-34.0); MCHC 34.9 G/DL (30.0-36.0); MCV 80.9 FL (86-99); PLATELET COUNT 180 K/uL (156-360); RBC DIS.WIDTH-SD 38.2 % (39-53); RED BLOOD COUNT 4.39 M/uL (4.00-5.50); WHITE BLOOD COUNT 8.7 K/uL (4.1-10.2)
[2017-12-03 15:08] LABS: CHLORIDE 97 mEq/L (99-109); SODIUM 132 mEq/L (136-147)
[2017-12-03 15:09] LABS: GLUCOSE 198 mg/dL (70-99)
[2017-12-03 15:13] LABS: GFR ESTIMATE (CALCULATED) > 59 mL/min/ (58.99-99999)
[2017-12-03 15:14] LABS: UREA NITROGEN (BUN) 24 mg/dL (9-23)
[2017-12-03 15:16] LABS: CREATININE 1.1 mg/dL (0.6-1.3)
[2017-12-03 15:20] LABS: TROP-I INTERPRETATION NEGATIVE; TROPONIN-I 0.02 ng/mL (0.0-0.30)
[2017-12-03 17:27] LABS: TROP-I INTERPRETATION NEGATIVE; TROPONIN-I < 0.01 ng/mL (0.0-0.30)
[2017-12-03 18:35] VITALS: BP 157/84
== END 2017-12-03 19:00 | disposition home or self-care (01) ==
LOC: EME 14:22
PROVIDERS: Emergency Medicine
DX: R07.89 Other chest pain (principal); F41.9 Anxiety disorder, unspecified; J44.9 Chronic obstructive pulmonary disease, unspecified; I50.9 Heart failure, unspecified; E11.9 Type 2 diabetes mellitus without complications; F31.9 Bipolar disorder, unspecified; F32.9 Major depressive disorder, single episode, unspecified; I25.2 Old myocardial infarction; Z95.1 Presence of aortocoronary bypass graft; Z79.82 Long term (current) use of aspirin; Z79.84 Long term (current) use of oral hypoglycemic drugs
CPT/HCPCS: 71046; 80048; 84484; 85027; 93005; 99281; 99285; J2060; J7040

== ENCOUNTER 2017-12-08 03:54 | Emergency (ER) | payer OTHER ==
[~2017-12-08] VITALS: Ht 167.6 cm; Wt 96.2 kg
[2017-12-08 05:09] LABS: HEMATOCRIT 35.4 % (38.0-50.0); HEMOGLOBIN 12.3 G/DL (12.5-16.6); MCH 28.3 PG (29.0-34.0); MCHC 34.7 G/DL (30.0-36.0); MCV 81.4 FL (86-99); PLATELET COUNT 208 K/uL (156-360); RBC DIS.WIDTH-CV 12.8 % (11.8-14.6); RBC DIS.WIDTH-SD 38.1 % (39-53); RED BLOOD COUNT 4.35 M/uL (4.00-5.50); WHITE BLOOD COUNT 7.6 K/uL (4.1-10.2)
[2017-12-08 05:10] LABS: APPEARANCE SL.HAZY ((CLEAR)); BILIRUBIN NEGATIVE; BLOOD LARGE; COLOR YELLOW ((YELLOW)); GLUCOSE (STRIP) >=500; KETONES NEGATIVE; LEUKOCYTES MODERATE; NITRITE NEGATIVE; PROTEIN (STRIP) 100
[2017-12-08 05:16] LABS: CHLORIDE 101 mEq/L (99-109); POTASSIUM 4.1 mEq/L (3.7-5.4); SODIUM 138 mEq/L (136-147)
[2017-12-08 05:16] LABS: BACTERIA RARE /HPF; EPITHELIAL CELLS NONE SEEN /HPF; HYALINE CASTS 0-5 /LPF; MUCUS NONE SEEN /LPF; RED BLOOD CELLS TNTC /HPF (0-5); WHITE BLOOD CELLS 15-20 /HPF (0-5)
[2017-12-08 05:17] LABS: MAGNESIUM 1.2 mg/dL (1.3-2.7)
[2017-12-08 05:18] LABS: GLUCOSE 171 mg/dL (70-99)
[2017-12-08 05:22] LABS: CREATININE 1.1 mg/dL (0.6-1.3); GFR ESTIMATE (CALCULATED) > 59 mL/min/ (58.99-99999)
[2017-12-08 05:22] LABS: D-DIMER ELISA < 150.00 ng/mLDDU (<230); TROP-I INTERPRETATION NEGATIVE; TROPONIN-I < 0.01 ng/mL (0.0-0.30)
[2017-12-08 05:23] LABS: UREA NITROGEN (BUN) 9 mg/dL (9-23)
[2017-12-08 06:47] VITALS: BP 141/94
== END 2017-12-08 10:38 | disposition home or self-care (01) ==
LOC: EME → EDBD 03:54 → EME 03:54
PROVIDERS: Physician Assistant
DX: R07.9 Chest pain, unspecified (principal); E11.9 Type 2 diabetes mellitus without complications; I25.2 Old myocardial infarction; Z79.84 Long term (current) use of oral hypoglycemic drugs; J44.9 Chronic obstructive pulmonary disease, unspecified; I50.9 Heart failure, unspecified; F32.9 Major depressive disorder, single episode, unspecified; F41.9 Anxiety disorder, unspecified; Z95.1 Presence of aortocoronary bypass graft; H54.8 Legal blindness, as defined in USA
CPT/HCPCS: 71045; 80048; 81003; 83735; 84484; 85027; 85379; 87086; 93005; 99281; 99284; J3010

== ENCOUNTER 2018-01-07 22:18 | Emergency (ER) | payer OTHER ==
[~2018-01-07] VITALS: Ht 172.7 cm; Wt 88.6 kg
[2018-01-07 23:05] LABS: BASOPHIL (%) 0.5 % (0-1); EOSINOPHIL (%) 2.9 % (0-5); EOSINOPHIL COUNT 0.2 K/uL (0-0.3); HEMOGLOBIN 13.4 G/DL (12.5-16.6); IMMATURE GRANULOCYTE (%) 1.1 % (0.0-0.7); LYMPHOCYTE COUNT 1.7 K/uL (1.0-2.8); MCH 28.7 PG (29.0-34.0); MCHC 35.3 G/DL (30.0-36.0); MCV 81.4 FL (86-99); MONOCYTE COUNT 0.5 K/uL (0-0.8); NEUTROPHIL (%) 65.5 % (45-76); NEUTROPHIL COUNT 4.8 K/uL (1.8-6.4); PLATELET COUNT 216 K/uL (156-360); RBC DIS.WIDTH-CV 13.2 % (11.8-14.6); RBC DIS.WIDTH-SD 38.2 % (39-53); RED BLOOD COUNT 4.67 M/uL (4.00-5.50); WHITE BLOOD COUNT 7.3 K/uL (4.1-10.2)
[2018-01-07 23:14] LABS: ALBUMIN 4.1 g/dL (3.2-4.8); CHLORIDE 99 mEq/L (99-109); POTASSIUM 3.8 mEq/L (3.7-5.4); SODIUM 135 mEq/L (136-147)
[2018-01-07 23:16] LABS: GLUCOSE 171 mg/dL (70-99)
[2018-01-07 23:17] LABS: TOTAL PROTEIN 7.6 g/dL (6.4-8.3)
[2018-01-07 23:18] LABS: TOTAL BILIRUBIN 0.6 mg/dL (0.0-1.0)
[2018-01-07 23:20] LABS: ALKALINE PHOSPHATASE 85 IU/L (3-129); CREATININE 1.1 mg/dL (0.6-1.3); GFR ESTIMATE (CALCULATED) > 59 mL/min/ (58.99-99999)
[2018-01-07 23:21] LABS: UREA NITROGEN (BUN) 20 mg/dL (9-23)
[2018-01-07 23:22] LABS: AST (GOT) 28 IU/L (2-34)
[2018-01-07 23:23] LABS: ALT (GPT) 39 IU/L (3-49)
[2018-01-07 23:25] LABS: D-DIMER ELISA < 150.00 ng/mLDDU (<230)
[2018-01-07 23:30] LABS: TROP-I INTERPRETATION NEGATIVE; TROPONIN-I 0.02 ng/mL (0.0-0.30)
[2018-01-08 02:13] LABS: TROP-I INTERPRETATION NEGATIVE; TROPONIN-I 0.02 ng/mL (0.0-0.30)
[2018-01-08 02:14] VITALS: BP 144/78
== END 2018-01-08 02:15 | disposition left against medical advice (07) ==
LOC: EME → EDBD 22:18 → EME 01-08 02:15
PROVIDERS: Emergency Medicine
DX: F32.9 Major depressive disorder, single episode, unspecified (principal); R07.89 Other chest pain; Z53.21 Procedure and treatment not carried out due to patient leaving prior to being seen by health care provider; E11.9 Type 2 diabetes mellitus without complications; J44.9 Chronic obstructive pulmonary disease, unspecified; I50.9 Heart failure, unspecified; G43.909 Migraine, unspecified, not intractable, without status migrainosus; F41.9 Anxiety disorder, unspecified; F31.9 Bipolar disorder, unspecified; H54.8 Legal blindness, as defined in USA; I25.2 Old myocardial infarction; Z79.82 Long term (current) use of aspirin; Z79.84 Long term (current) use of oral hypoglycemic drugs; Z87.19 Personal history of other diseases of the digestive system; Z87.01 Personal history of pneumonia (recurrent); Z91.5 Personal history of self-harm; Z95.1 Presence of aortocoronary bypass graft
CPT/HCPCS: 71046; 80053; 84484; 85025; 85379; 90839; 93005; 99281; 99285

== ENCOUNTER 2018-01-13 02:01 | Emergency (ER) | payer OTHER ==
[~2018-01-13] VITALS: Ht 165.1 cm; Wt 86.2 kg
[2018-01-13 02:40] LABS: HEMATOCRIT 37.5 % (38.0-50.0); MCH 28.7 PG (29.0-34.0); MCHC 34.7 G/DL (30.0-36.0); MCV 82.8 FL (86-99); NRBC (%) 0.2 /100 WBC (0-0); PLATELET COUNT 218 K/uL (156-360); RBC DIS.WIDTH-CV 13.2 % (11.8-14.6); RBC DIS.WIDTH-SD 39.2 % (39-53); RED BLOOD COUNT 4.53 M/uL (4.00-5.50); WHITE BLOOD COUNT 9.1 K/uL (4.1-10.2)
[2018-01-13 03:04] LABS: CHLORIDE 98 mEq/L (99-109); POTASSIUM 4.1 mEq/L (3.7-5.4); SODIUM 137 mEq/L (136-147)
[2018-01-13 03:06] LABS: GLUCOSE 142 mg/dL (70-99)
[2018-01-13 03:10] LABS: CREATININE 1.3 mg/dL (0.6-1.3); GFR ESTIMATE (CALCULATED) > 59 mL/min/ (58.99-99999); UREA NITROGEN (BUN) 25 mg/dL (9-23)
[2018-01-13 03:17] LABS: TROP-I INTERPRETATION NEGATIVE; TROPONIN-I 0.02 ng/mL (0.0-0.30)
[2018-01-13 04:00] VITALS: BP 138/99
[2018-01-13] MEDS ORDERED: XYLOCAINE VISC100 ML PO (04:00)
== END 2018-01-13 04:03 | disposition home or self-care (01) ==
LOC: EME → EDBD 02:01 → EME 04:03
DX: R07.9 Chest pain, unspecified (principal); I35.0 Nonrheumatic aortic (valve) stenosis; I25.10 Atherosclerotic heart disease of native coronary artery without angina pectoris; F41.9 Anxiety disorder, unspecified; I50.9 Heart failure, unspecified; J44.9 Chronic obstructive pulmonary disease, unspecified; I25.2 Old myocardial infarction; Z95.1 Presence of aortocoronary bypass graft; Z79.82 Long term (current) use of aspirin
CPT/HCPCS: 71046; 80048; 84484; 85027; 93005; 99281; 99284

== ENCOUNTER 2018-02-02 01:56 | Emergency (ER) | payer OTHER ==
[~2018-02-02] VITALS: Ht 172.7 cm; Wt 90.5 kg
[~2018-02-02 01:56] MED LIST changes: +XYLOCAINE VISC100 ML PO
[2018-02-02 03:42] LABS: HEMATOCRIT 36.8 % (38.0-50.0); MCH 29.1 PG (29.0-34.0); MCHC 35.3 G/DL (30.0-36.0); MCV 82.5 FL (86-99); PLATELET COUNT 200 K/uL (156-360); RBC DIS.WIDTH-CV 12.7 % (11.8-14.6); RBC DIS.WIDTH-SD 38.2 % (39-53); RED BLOOD COUNT 4.46 M/uL (4.00-5.50); WHITE BLOOD COUNT 6.1 K/uL (4.1-10.2)
[2018-02-02 03:52] LABS: CHLORIDE 98 mEq/L (99-109); POTASSIUM 4.2 mEq/L (3.7-5.4); SODIUM 135 mEq/L (136-147)
[2018-02-02 03:53] LABS: GLUCOSE 334 mg/dL (70-99)
[2018-02-02 03:57] LABS: CREATININE 1.3 mg/dL (0.6-1.3); GFR ESTIMATE (CALCULATED) > 59 mL/min/ (58.99-99999)
[2018-02-02 03:58] LABS: UREA NITROGEN (BUN) 21 mg/dL (9-23)
[2018-02-02 04:02] LABS: TROP-I INTERPRETATION NEGATIVE; TROPONIN-I < 0.01 ng/mL (0.0-0.30)
[2018-02-02 04:39] LABS: D-DIMER ELISA < 150.00 ng/mLDDU (<230)
[2018-02-02 05:06] LABS: TROP-I INTERPRETATION NEGATIVE; TROPONIN-I < 0.01 ng/mL (0.0-0.30)
[2018-02-02 05:47] VITALS: BP 145/93
== END 2018-02-02 05:49 | disposition home or self-care (01) ==
LOC: EME → EDBD 01:56 → EME 01:56
PROVIDERS: Emergency Medicine
DX: R07.9 Chest pain, unspecified (principal); M79.602 Pain in left arm; R00.0 Tachycardia, unspecified; J98.11 Atelectasis; I25.2 Old myocardial infarction; Z95.1 Presence of aortocoronary bypass graft; J44.9 Chronic obstructive pulmonary disease, unspecified; E11.9 Type 2 diabetes mellitus without complications; Z79.84 Long term (current) use of oral hypoglycemic drugs; I11.0 Hypertensive heart disease with heart failure; I50.9 Heart failure, unspecified; H54.8 Legal blindness, as defined in USA; Z79.82 Long term (current) use of aspirin
CPT/HCPCS: 71046; 80048; 84484; 85027; 85379; 93005; 99281; 99285

== ENCOUNTER 2018-02-16 00:33 | Emergency (ER) | payer OTHER ==
[~2018-02-16] VITALS: Ht 172.7 cm; Wt 90.0 kg
[2018-02-16 01:01] LABS: HEMATOCRIT 36.2 % (38.0-50.0); HEMOGLOBIN 12.8 G/DL (12.5-16.6); MCH 28.6 PG (29.0-34.0); MCHC 35.4 G/DL (30.0-36.0); PLATELET COUNT 169 K/uL (156-360); RBC DIS.WIDTH-CV 12.3 % (11.8-14.6); RBC DIS.WIDTH-SD 35.7 % (39-53); RED BLOOD COUNT 4.47 M/uL (4.00-5.50)
[2018-02-16 01:20] LABS: CARBON DIOXIDE (BICARBONATE) 29.1 MEQ/L (20-31)
[2018-02-16 01:23] LABS: TROP-I INTERPRETATION NEGATIVE; TROPONIN-I < 0.01 ng/mL (0.0-0.30)
[2018-02-16 01:29] LABS: CHLORIDE 93 MEQ/L (99-109); CREATININE 1.1 MG/DL (0.6-1.3); GFR ESTIMATE (CALCULATED) > 59 mL/min/ (58.99-99999); GLUCOSE 372 mg/dL (70-99); SODIUM 130 MEQ/L (136-147); UREA NITROGEN (BUN) 14 mg/dL (9-23)
[2018-02-16 03:20] LABS: TROP-I INTERPRETATION NEGATIVE; TROPONIN-I < 0.01 ng/mL (0.0-0.30)
[2018-02-16 03:35] VITALS: BP 157/90
== END 2018-02-16 03:37 | disposition home or self-care (01) ==
LOC: EME → EDBD 00:33 → EME 03:37
PROVIDERS: Emergency Medicine
DX: R07.9 Chest pain, unspecified (principal); E11.9 Type 2 diabetes mellitus without complications; Z79.84 Long term (current) use of oral hypoglycemic drugs; I50.9 Heart failure, unspecified; I25.2 Old myocardial infarction; F32.9 Major depressive disorder, single episode, unspecified; J43.9 Emphysema, unspecified; F41.9 Anxiety disorder, unspecified; H54.8 Legal blindness, as defined in USA; Z95.1 Presence of aortocoronary bypass graft
CPT/HCPCS: 71046; 80048; 82803; 84484; 85027; 93005; 99281; 99284

== ENCOUNTER 2018-02-24 02:10 | Emergency (ER) | payer OTHER ==
[~2018-02-24] VITALS: Ht 172.7 cm; Wt 88.3 kg
[2018-02-24 02:50] LABS: HEMATOCRIT 36.9 % (38.0-50.0); HEMOGLOBIN 12.9 G/DL (12.5-16.6); MCH 28.9 PG (29.0-34.0); MCV 82.7 FL (86-99); NRBC (%) 0.5 /100 WBC (0-0); PLATELET COUNT 178 K/uL (156-360); RBC DIS.WIDTH-CV 12.3 % (11.8-14.6); RBC DIS.WIDTH-SD 37.1 % (39-53); RED BLOOD COUNT 4.46 M/uL (4.00-5.50); WHITE BLOOD COUNT 7.5 K/uL (4.1-10.2)
[2018-02-24 02:57] LABS: INTER. NORMALIZED RATIO 0.9
[2018-02-24 02:59] LABS: CHLORIDE 99 mEq/L (99-109); D-DIMER ELISA < 150.00 ng/mLDDU (<230); POTASSIUM 4.2 mEq/L (3.7-5.4); SODIUM 136 mEq/L (136-147)
[2018-02-24 03:00] LABS: GLUCOSE 243 mg/dL (70-99); PTT 29.5 SEC (25-37)
[2018-02-24 03:04] LABS: CREATININE 1.1 mg/dL (0.6-1.3); GFR ESTIMATE (CALCULATED) > 59 mL/min/ (58.99-99999)
[2018-02-24 03:05] LABS: UREA NITROGEN (BUN) 21 mg/dL (9-23)
[2018-02-24 03:11] LABS: TROP-I INTERPRETATION NEGATIVE; TROPONIN-I < 0.01 ng/mL (0.0-0.30)
[2018-02-24 04:51] LABS: TROP-I INTERPRETATION NEGATIVE; TROPONIN-I 0.01 ng/mL (0.0-0.30)
[2018-02-24 05:37] VITALS: BP 156/93
== END 2018-02-24 05:39 | disposition home or self-care (01) ==
LOC: EME → EDBD 02:10 → EME 02:10
PROVIDERS: Emergency Medicine
DX: R07.89 Other chest pain (principal); I10 Essential (primary) hypertension; I25.2 Old myocardial infarction; Z95.5 Presence of coronary angioplasty implant and graft; Z79.82 Long term (current) use of aspirin; Z79.84 Long term (current) use of oral hypoglycemic drugs
CPT/HCPCS: 71045; 80048; 84484; 85027; 85379; 85610; 85730; 93005; 99281; 99285

== ENCOUNTER 2018-03-03 09:59 | Emergency (ER) | payer OTHER ==
[~2018-03-03] VITALS: Ht 172.7 cm; Wt 83.2 kg
[2018-03-03 10:57] LABS: APPEARANCE CLEAR ((CLEAR)); BILIRUBIN NEGATIVE; BLOOD SMALL; COLOR STRAW ((YELLOW)); GLUCOSE (STRIP) 150; KETONES NEGATIVE; LEUKOCYTES SMALL; NITRITE NEGATIVE; PROTEIN (STRIP) 100; SPECIFIC GRAVITY 1.004 (1.000-1.030); UROBILINOGEN 0.2 MG/DL (0.2-1.0)
[2018-03-03 11:03] LABS: HEMATOCRIT 38.3 % (38.0-50.0); HEMOGLOBIN 13.5 G/DL (12.5-16.6); MCH 28.8 PG (29.0-34.0); MCHC 35.2 G/DL (30.0-36.0); MCV 81.8 FL (86-99); PLATELET COUNT 205 K/uL (156-360); RBC DIS.WIDTH-CV 12.3 % (11.8-14.6); RBC DIS.WIDTH-SD 36.7 % (39-53); RED BLOOD COUNT 4.68 M/uL (4.00-5.50); WHITE BLOOD COUNT 7.7 K/uL (4.1-10.2)
[2018-03-03 11:12] LABS: ALBUMIN 4.2 g/dL (3.2-4.8); CHLORIDE 96 mEq/L (99-109); POTASSIUM 3.7 mEq/L (3.7-5.4); SODIUM 135 mEq/L (136-147)
[2018-03-03 11:14] LABS: GLUCOSE 191 mg/dL (70-99); TOTAL PROTEIN 7.6 g/dL (6.4-8.3)
[2018-03-03 11:16] LABS: TOTAL BILIRUBIN 0.4 mg/dL (0.0-1.0)
[2018-03-03 11:18] LABS: ALKALINE PHOSPHATASE 87 IU/L (3-129); CREATININE 1.1 mg/dL (0.6-1.3); GFR ESTIMATE (CALCULATED) > 59 mL/min/ (58.99-99999)
[2018-03-03 11:19] LABS: AST (GOT) 21 IU/L (2-34); UREA NITROGEN (BUN) 15 mg/dL (9-23)
[2018-03-03 11:20] LABS: DIRECT BILIRUBIN 0.2 mg/dL (0.0-0.3)
[2018-03-03 11:21] LABS: ALT (GPT) 39 IU/L (3-49); LIPASE 61 U/L (1.0-51.0)
[2018-03-03 11:27] LABS: BACTERIA 1+ /HPF; EPITHELIAL CELLS RARE /HPF; MUCUS NONE SEEN /LPF; OTHER BUDDING YEAST 1+; RED BLOOD CELLS 0-5 /HPF (0-5); UCUL ADDED? NO; WHITE BLOOD CELLS 0-5 /HPF (0-5)
[2018-03-03] MEDS ORDERED: KEFLEX500 MG PO (12:31)
[2018-03-03 13:15] VITALS: BP 148/85
== END 2018-03-03 13:50 | disposition home or self-care (01) ==
LOC: EME 09:59
PROVIDERS: Emergency Medicine
DX: N39.0 Urinary tract infection, site not specified (principal); M19.90 Unspecified osteoarthritis, unspecified site; I35.0 Nonrheumatic aortic (valve) stenosis; Z87.11 Personal history of peptic ulcer disease; Z95.1 Presence of aortocoronary bypass graft; Z79.82 Long term (current) use of aspirin
CPT/HCPCS: 74176; 80048; 80076; 81003; 83690; 85027; 87077; 87086; 87186; 99281; 99285; J2405

== ENCOUNTER 2018-03-08 00:47 | Emergency (ER) | payer OTHER ==
[~2018-03-08] VITALS: Ht 172.7 cm; Wt 89.6 kg
[~2018-03-08 00:47] MED LIST changes: +KEFLEX500 MG PO
[2018-03-08 02:43] LABS: APPEARANCE CLEAR ((CLEAR)); BILIRUBIN NEGATIVE; BLOOD NEGATIVE; COLOR YELLOW ((YELLOW)); GLUCOSE (STRIP) >=500; KETONES 5; LEUKOCYTES NEGATIVE; NITRITE NEGATIVE; PROTEIN (STRIP) >=500; SPECIFIC GRAVITY 1.027 (1.000-1.030)
[2018-03-08 02:48] LABS: HEMATOCRIT 41.4 % (38.0-50.0); HEMOGLOBIN 14.3 G/DL (12.5-16.6); MCH 28.3 PG (29.0-34.0); MCHC 34.5 G/DL (30.0-36.0); PLATELET COUNT 218 K/uL (156-360); RBC DIS.WIDTH-CV 12.2 % (11.8-14.6); RBC DIS.WIDTH-SD 36.7 % (39-53); RED BLOOD COUNT 5.05 M/uL (4.00-5.50); WHITE BLOOD COUNT 6.5 K/uL (4.1-10.2)
[2018-03-08 02:52] LABS: BACTERIA NONE SEEN /HPF; EPITHELIAL CELLS NONE SEEN /HPF; MUCUS TRACE /LPF; RED BLOOD CELLS 0-5 /HPF (0-5); UCUL ADDED? NO; WHITE BLOOD CELLS 0-5 /HPF (0-5)
[2018-03-08 03:00] LABS: ALBUMIN 4.1 g/dL (3.2-4.8); CHLORIDE 98 mEq/L (99-109); POTASSIUM 4.4 mEq/L (3.7-5.4); SODIUM 135 mEq/L (136-147)
[2018-03-08 03:03] LABS: GLUCOSE 249 mg/dL (70-99); TOTAL PROTEIN 7.6 g/dL (6.4-8.3)
[2018-03-08 03:04] LABS: TOTAL BILIRUBIN 0.4 mg/dL (0.0-1.0)
[2018-03-08 03:05] LABS: SERUM ETHYL ALCOHOL < 10 mg/dL
[2018-03-08 03:06] LABS: ALKALINE PHOSPHATASE 90 IU/L (3-129); CREATININE 1.1 mg/dL (0.6-1.3); GFR ESTIMATE (CALCULATED) > 59 mL/min/ (58.99-99999)
[2018-03-08 03:08] LABS: AST (GOT) 29 IU/L (2-34); UREA NITROGEN (BUN) 19 mg/dL (9-23)
[2018-03-08 03:09] LABS: ALT (GPT) 36 IU/L (3-49)
[2018-03-08 03:10] LABS: LIPASE 59 U/L (1.0-51.0)
[2018-03-08 03:15] LABS: TROP-I INTERPRETATION NEGATIVE; TROPONIN-I < 0.01 ng/mL (0.0-0.30)
[2018-03-08] MEDS ORDERED: ZOFRAN4 MG PO (04:43)
[2018-03-08] MEDS ORDERED: PREDNISONE20 MG PO (04:43)
[2018-03-08 05:01] VITALS: BP 137/79
== END 2018-03-08 05:03 | disposition home or self-care (01) ==
LOC: EME 00:47
PROVIDERS: Emergency Medicine
DX: J45.901 Unspecified asthma with (acute) exacerbation (principal); R07.9 Chest pain, unspecified; R10.9 Unspecified abdominal pain; I10 Essential (primary) hypertension; I25.2 Old myocardial infarction
CPT/HCPCS: 71046; 80053; 81003; 83605; 83690; 84484; 85027; 93005; 94640; 99281; 99285; G0480; J2270; J2405; J7030; J7512